=== PATIENT | male | born 1945 | race Caucasian/White ===

== ENCOUNTER → 2023-08-19 | Outpatient (CLI) | payer MEDICARE, OTHER, SELFPAY ==
--- NOTE | 2023-08-19 18:27 | US_ITS ---
STUDY: SCROTUM ULTRASOUND REASON FOR EXAM: Male, 78 years old. Left testicular swelling. TECHNIQUE: Ultrasound evaluation of the scrotum was performed with color Doppler and static marte-scale imaging. COMPARISON: None. FINDINGS: RIGHT TESTICLE INTRATESTICULAR: There is a normal size of the right testicle. The right testicle measures 4.4 cm x 3.5 cm x 2.4 cm. There is a homogenous echotexture. There is normal arterial and normal venous vascularity. There is no demonstrated right testicular mass or cyst. EXTRATESTICULAR: The epididymis is normal in size. The epididymis head measures 1.1 cm x 1.3 cm x 1.6 cm. There is normal vascularity of the epididymis. There is a well-defined cystic structure within the epididymis, without internal echoes, consistent with an epididymal cyst. This measures 6 mm x 7 mm x 5 mm. There is a small hydrocele. There is no demonstrated varicocele. There is no demonstrated extratesticular mass or cyst. LEFT TESTICLE INTRATESTICULAR: There is a normal size of the left testicle. The left testicle measures 4.4 cm x 3.3 cm x 2.6 cm. There is a homogenous echotexture. There is normal arterial and normal venous vascularity. There is no demonstrated left testicular mass or cyst. EXTRATESTICULAR: The epididymis is normal in size. The epididymis head measures 1.3 cm x 1 cm x 0.6 cm. There is normal vascularity of the epididymis. There is a well-defined cystic structure within the epididymis, without internal echoes, consistent with an epididymal cyst. This measures 6 mm x 4 mm x 6 mm. There is a large hydrocele. There is no demonstrated varicocele. There is no demonstrated extratesticular mass or cyst. US/Testicular with Arterial Flow IMPRESSION: Small bilateral epididymal cysts. Large left hydrocele. Small right hydrocele. Electronically Signed: Bethel Gutierrez MD at 12:59 EDT ,
== END | disposition home or self-care (01) ==
LOC: US 18:26
PROVIDERS: PCP Internal Medicine; Visit Provider Internal Medicine
DX: N50.3 Cyst of epididymis (principal); N43.3 Hydrocele, unspecified
CPT/HCPCS: 76870; 93976

== ENCOUNTER → 2023-09-25 | Outpatient (CLI) | payer MEDICARE, OTHER, SELFPAY ==
[2023-09-25 11:51] LABS: Absolute Lymphocyte Count 1.25 X10^3/uL (0.83-4.51); Absolute Neutrophil Count 2.6 X10^3/uL (2.0-7.7); Basophil# 0.05 X10^3/uL; Eosinophil# 0.44 X10^3/uL; Eosinophils% 8.4 % (0-5); Hematocrit 42.9 % (40-54); Hemoglobin 14.1 g/dL (13.0-16.5); Lymphocyte # 1.25 X10^3/ul (0.83-4.51); Lymphocyte % 23.9 % (19-41); Mean Corp Hgb Conc 32.9 g/dL (32-36); Mean Corpuscular Volume 91.3 fL (80-94); Mean Platelet Vol. 9.7 fl (6.2-12.0); Monocyte# 0.93 X10^3/uL; Monocyte% 17.8 % (0-10); NRBC Flagged by Analyzer 0 % (0-5); Neutrophil # 2.55 X10^3/uL (2.7-7.7); Neutrophil % 48.7 % (47-70); Platelet Count 307 K/mm3 (150-450); RBC Distribution Width CV 13.8 % (11.6-14.6); RBC Distribution Width SD 46.4 fl (35.1-43.9); White Blood Count 5.2 K/mm3 (4.4-11.0)
[2023-09-25 12:23] LABS: ALB/GLOB Ratio 0.9 RATIO (0.9-2.4); AST(SGOT) 26 U/L (15-37); Alanine Aminotransfer ALT/SGPT 26 U/L (16-61); Albumin, Serum 3.4 g/dL (3.2-5.0); Alkaline Phosphatase 57 U/L (45-117); Anion Gap 2 (5-15); BUN 16 mg/dL (7-18); Chloride 104 mmol/L (98-107); Cholesterol 152 mg/dL (200); Creatinine, Serum 1.14 mg/dL (0.70-1.30); EST Glomerular Filtration Rate 66 mL/min (>60); Est Glom Filt Rate - Afr Amer 80 mL/min (>60); Globulin 3.7 g/dL (2.2-4.2); Glucose 121 mg/dL (74-106); High Density Lipoprotein 51 mg/dL; Magnesium 2.1 mg/dL (1.6-2.6); PSA,Total - Annual Screen 2.42 ng/mL (0.00-4.00); Potassium 3.3 mmol/L (3.5-5.1); Protein, Total 7.1 g/dL (6.4-8.2); Sodium Level 138 mmol/L (136-145); Thyroid Stim Hormone (TSH) 1.24 uIU/mL (0.358-3.74); Triglycerides 95 mg/dL; Very Low Density Lipoprotein 19 mg/dL (5-40)
[2023-09-25 18:08] LABS: Vitamin D,25 Hydroxy 92.2 ng/mL
== END | disposition home or self-care (01) ==
LOC: LAB 11:04
PROVIDERS: PCP Internal Medicine; Referring Provider Internal Medicine; Visit Provider Internal Medicine
DX: E78.5 Hyperlipidemia, unspecified (principal); Z13.220 Encounter for screening for lipoid disorders; I10 Essential (primary) hypertension; K21.9 Gastro-esophageal reflux disease without esophagitis; J30.2 Other seasonal allergic rhinitis; Z12.5 Encounter for screening for malignant neoplasm of prostate; E55.9 Vitamin D deficiency, unspecified
CPT/HCPCS: 36415; 80053; 80061; 82306; 83735; 84153; 84443; 85025; G0103

== ENCOUNTER → 2024-09-27 | Outpatient (CLI) | payer MEDICARE, OTHER, SELFPAY ==
[2024-09-27 12:16] LABS: Absolute Lymphocyte Count 1.72 X10^3/uL (0.83-4.51); Absolute Neutrophil Count 4.5 X10^3/uL (2.0-7.7); Basophil# 0.09 X10^3/uL; Basophil% 1.2 % (0-1); Eosinophil# 0.41 X10^3/uL; Eosinophils% 5.4 % (0-5); Hematocrit 40.4 % (40-54); Hemoglobin 13.7 g/dL (13.0-16.5); Lymphocyte # 1.72 X10^3/ul (0.83-4.51); Lymphocyte % 22.6 % (19-41); Mean Corp Hgb Conc 33.9 g/dL (32-36); Mean Corpuscular Hgb 30.5 pg (27.0-32.0); Mean Platelet Vol. 9.4 fl (6.2-12.0); Monocyte# 0.84 X10^3/uL; NRBC Flagged by Analyzer 0 % (0-5); Neutrophil # 4.54 X10^3/uL (2.7-7.7); Neutrophil % 59.5 % (47-70); Platelet Count 328 K/mm3 (150-450); RBC Distribution Width CV 13.2 % (11.6-14.6); RBC Distribution Width SD 43.5 fl (35.1-43.9); Red Blood Count 4.49 M/mm3 (4.6-6.2); White Blood Count 7.6 K/mm3 (4.4-11.0)
[2024-09-27 13:10] LABS: Cholesterol 182 mg/dL (<=200); High Density Lipoprotein 52 mg/dL; Low Density Lipoprotein Calc. 102 mg/dL; Triglycerides 143 mg/dL; Very Low Density Lipoprotein 29 mg/dL (5-40); cholesterol:hdl ratio screen 3.52
[2024-09-27 13:26] LABS: ALB/GLOB Ratio 1.2 RATIO (0.9-2.4); AST(SGOT) 38 U/L (<=37); Alanine Aminotransfer ALT/SGPT 25 U/L (<=46); Alkaline Phosphatase 64 U/L (40-129); Anion Gap 9 (5-15); BUN 18 mg/dL (4-19); BUN/Creat Ratio 17.3 RATIO (10-20); Calcium,Total 9.7 mg/dL (7.6-11.0); Carbon Dioxide 26.7 mmol/L (21.0-32.0); Chloride 102 mmol/L (98-108); Creatinine, Serum 1.06 mg/dL (0.70-1.20); EST Glomerular Filtration Rate 72 (>60); Globulin 3.3 g/dL (2.2-4.2); Glucose 102 mg/dL (70-99); PSA,Total - Annual Screen 3.22 ng/mL (0.02-4.00); Potassium 3.7 mmol/L (3.3-5.1); Protein, Total 7.3 g/dL (5.9-8.4); Sodium Level 138 mmol/L (133-145); Total Bilirubin 0.45 mg/dL (0.00-1.30); Vitamin B12 850 pg/mL (180-914); Vitamin D,25 Hydroxy 82.8 ng/mL (30-100)
== END | disposition home or self-care (01) ==
PROVIDERS: PCP Internal Medicine; Referring Provider Internal Medicine; Visit Provider Internal Medicine
DX: I10 Essential (primary) hypertension (principal); K21.9 Gastro-esophageal reflux disease without esophagitis; J30.2 Other seasonal allergic rhinitis; E55.9 Vitamin D deficiency, unspecified; E53.8 Deficiency of other specified B group vitamins; Z12.5 Encounter for screening for malignant neoplasm of prostate
CPT/HCPCS: 36415; 80053; 80061; 82306; 82607; 83735; 84153; 84443; 85025; G0103

== ENCOUNTER → 2025-01-05 | Outpatient (CLI) | payer MEDICARE, OTHER, SELFPAY ==
--- NOTE | 2025-01-05 14:20 | VDLE_ITS ---
Reason For Study Reason For Study: RLE Swelling RIGHT LEFT GSV is normal. CFV is compressible, spontaneous, phasic, competent, CFV is compressible, spontaneous, phasic, competent and demonstrates normal augmentation. and demonstrates normal augmentation. FV is compressible, spontaneous, phasic, competent and demonstrates normal augmentation. POP V is compressible, spontaneous, phasic, competent and demonstrates normal augmentation. T/P Trunk is compressible. PTV is compressible. RT PerV is compressible. Procedure This is a venous duplex using B-mode, color flow and spectral Doppler. Exam performed in department. The exam was diagnostic. A preliminary report was called and/or faxed to Dr. Roth office. VL/Venous Duplex US, Unilateral Interpretation Summary Deep veins of the right lower extremity are patent and compressible segmentally . There is no evidence of right lower extremity deep vein thrombosis. Valvular competence appears intact within the p roximal deep venous system on the right . The right great saphenous vein appears patent and compressible segmentally. The left common femoral vein is patent and compressible . Ordering Physician: Yasmeen Roth Referring Physician: Yasmeen Roth Performed By: Ken Winters RVT
--- OUTSIDE RECORDS SUMMARY | 2025-01-05 22:52 | XMS RPT_ITS | CCD ---
Author Organization [facility] Care Team Providers Care Director Selection And Administration Name Role Phone ROXANA HIDALGO MD Consulting Unavailable MARIA G HIDALGO DR Admitting Unavailable MARIA G HIDALGO DR Attending Unavailable MARIA G HIDALGO DR Primary Care Unavailable PROVIDER, UNKNOWN Consulting Unavailable PROVIDER, UNKNOWN Consulting Unavailable PROVIDER, UNKNOWN Consulting Unavailable ROXANA HIDALGO MD Consulting Unavailable ROXANA HIDALGO MD Attending Unavailable ROXANA HIDALGO MD Admitting Unavailable ROXANA HIDALGO MD Primary Care Unavailable PROVIDER, UNKNOWN Consulting Unavailable PROVIDER, UNKNOWN Consulting Unavailable PROVIDER, UNKNOWN Consulting Unavailable MARIA G HIDALGO DR Primary Care Unavailable ROXANA HIDALGO MD Consulting Unavailable MARIA G HIDALGO DR Admitting Unavailable MARIA G HIDALGO DR Attending Unavailable PROVIDER, UNKNOWN Consulting Unavailable PROVIDER, UNKNOWN Consulting Unavailable PROVIDER, UNKNOWN Consulting Unavailable UMM, JOCELYNN T Attending Unavailable UMM, JOCELYNN T Admitting Unavailable ROXANA HIDALGO MD Consulting Unavailable UMM, JOCELYNN T Primary Care Unavailable PROVIDER, UNKNOWN Consulting Unavailable PROVIDER, UNKNOWN Consulting Unavailable PROVIDER, UNKNOWN Consulting Unavailable ROXANA HIDALGO MD Attending Unavailable ROXANA HIDALGO MD Admitting Unavailable ROXANA HIDALGO MD Primary Care Unavailable RAMON, FELTON PAC Primary Care Unavailable RAMON, FELTON PAC Admitting Unavailable RAMON, FELTON PAC Attending Unavailable ROXANA HIDALGO MD Consulting Unavailable PROVIDER, UNKNOWN Consulting Unavailable PROVIDER, UNKNOWN Consulting Unavailable PROVIDER, UNKNOWN Consulting Unavailable RAMON, FELTON PAC Admitting Unavailable ROXANA HIDALGO MD Consulting Unavailable RAMON, FELTON PAC Primary Care Unavailable RAMON, FELTON PAC Attending Unavailable PROVIDER, UNKNOWN Consulting Unavailable PROVIDER, UNKNOWN Consulting Unavailable PROVIDER, UNKNOWN Consulting Unavailable ROXANA HIDALGO MD Consulting Unavailable MARIA G HIDALGO DR Attending Unavailable MARIA G HIDALGO DR Primary Care Unavailable MARIA G HIDALGO DR Admitting Unavailable PROVIDER, UNKNOWN Consulting Unavailable PROVIDER, UNKNOWN Consulting Unavailable PROVIDER, UNKNOWN Consulting Unavailable ROXANA HIDALGO MD Attending Unavailable ROXANA HIDALGO MD Admitting Unavailable ROXANA HIDALGO MD Primary Care Unavailable ROXANA HIDALGO MD Consulting Unavailable PROVIDER, UNKNOWN Consulting Unavailable PROVIDER, UNKNOWN Consulting Unavailable PROVIDER, UNKNOWN Consulting Unavailable MARIA G HIDALGO DR Primary Care Unavailable MARIA G HIDALGO DR Attending Unavailable MARIA G HIDALGO DR Admitting Unavailable Unavailable Primary Care Provider UnavailBenita Young MD Attending Unavailable Dr. Roxana Hidalgo Primary Care Provider [phone] Dr. Yasmeen Roth Attending Provider [phone] Dr. Yasmeen Roth MD Primary Care Provider Dr. Yasmeen Roth MD Attending Provider Yasmeen Roth Referring Unavailable Yasmeen Roth Attending Unavailable Yasmeen Roth Primary Care Unavailable Yasmeen Roth Attending Unavailable Yasmeen Roth Primary Care Unavailable Ira ERVIN, Dr. Arana Referring Provider Allergies Allergy Classification Reported Allergen(s) Allergy Type Date of Onset Reaction(s) Facility (1 source) Aspirin Drug Allergy [facility] Repository (3 sources) Aspirin Drug Allergy 08-14-2023 Bleeding [facility] Comment on above: full strength, react ion not listed (1 source) Aspirin Drug Allergy 09-27-2024 [facility]ository Medications Current Medications Medication Drug Class(es) Dates Sig (Normalized) Sig (Original) cetirizine hydrochloride 10 mg oral tablet (3 sources) Histamine-1 Receptor Antagonist Start: 09-11-2022 take 1 tablet by mouth once daily Cetirizine (All Day Allergy (Cetirizine)) 10 mg tablet Active 10 mg PO DAILY September 11, 2022 12:00am cholecalciferol 0.05 mg oral capsule (3 sources) Vitamin D Start: 09-11-2022 take 1 capsule by mouth once daily Cholecalciferol (Vitamin D3) 50 mcg (2,000 unit) capsule Active 50 ug PO DAILY September 11, 2022 12:00am cyclobenzaprine hydrochloride 10 mg oral tablet (1 source) Muscle Relaxant Start: 01-05-2025 take 1 tablet by mouth every eight hours as needed for pain Cyclobenzaprine 10 mg tablet Active 10 mg PO EVERY 8 HOURS as needed for pain January 05, 2025 12:00am Pv-Isq-Bjcwu-Calcium Carb-K1 (Women's 50 Plus Multivitamin) 400 mcg-500 mg calcium-20 mcg tablet (3 sources) Start: 09-11-2022 Ev-Rwh-Hncwz-Calcium Carb-K1 (Women's 50 Plus Multivitamin) 400 mcg-500 mg calcium-20 mcg tablet Active {tbl} PO September 11, 2022 12:00am Start: 09-11-2022 take 1 tablet by mouth once Mv -Vlq-Qxlae-Ipypnev Carb-K1 (Women's 50 Plus Multivitamin) 400 mcg-500 mg calcium-20 mcg tablet Active TABLET PO September 11, 2022 12:00am traMADol hydrochloride 50 mg oral tablet (1 source) Opioid Agonist Start: 01-05-2025 take 1 tablet by mouth every six hours as needed for pain Tramadol 50 mg tablet Active 50 mg PO EVERY 6 HOURS as needed for pain January 05, 2025 12:00am WHEAT DEXTRIN (3 sources) Start: 09-11-2022 take 4 [oz_av] by mouth twice daily Wheat Dextrin (Fiber Supplement(Wheatdext rin)) 3 gram/3.8 gram powder Active 1.5 g PO TWICE A DAY September 11, 2022 12:00am mix into at least 4 oz water or juice before administering Start: 09-11-2022 take 4 [oz_av] by mo [facility] twice daily Wheat Dextrin (Fiber Supplement(Wheatdextrin)) 3 gram/3.8 gram powder Active 1.5 GM PO TWICE A DAY September 11, 2022 12:00am mix into at least 4 oz water or juice before administering Completed/Discontinued Medications Medication Drug Class(es) Dates Sig (Normalized) Sig (Original) azithromycin 250 mg oral tablet (2 sources) Macrolide Antimicrobial Start: 09-25-19 End: 09-28-19 Azithromycin (Zithromax) 250 mg tablet Discontinued 0 PO .COMPLEX 6 0 September 25, 2023 12:00am September 27, 2024 10:17am For 250 mg dose pack: take 500 mg today (day 1), then 250 mg for 4 days (days 2-5) PO celecoxib 200 mg oral capsule (3 sources) Nonsteroidal Anti-inflammatory Drug Start: 08-14-19 End: 08-19-19 take 1 capsule by mouth once daily Celecoxib (Celebrex) 200 mg capsule Discontinued 200 mg PO DAILY 5 5 0 August 14, 2023 12:00am August 18, 2023 12:00am August 19, 2023 12:05am Take with a meal. doxycycline hyclate 100 mg oral tablet (3 sources) Tetracycline-clas s Drug Start: 08-14-19 End: 09-25-19 take 1 tablet by mouth twice daily Doxycycline Hyclate 100 mg tablet Discontinued 100 mg PO TWICE A DAY 10 August 14, 2023 12:00am September 25, 2023 10:00am Take on empty stomach with a couple of crackers, and small amount of water. Do not take with dairy. hydroCHLOROthiazide 50 mg oral tablet (8 sources) Thiazide Diuretic Start: 09-12-19 End: 07-21-19 take 1 tablet by mouth once daily Hydrochlorothiazide 50 mg tablet Discontinued 50 mg PO DAILY July 15, 2023 5:54pm July 20, 2024 11:40am losartan potassium 50 mg oral tablet (8 sources) Angiotensin 2 Receptor Paul Start: 09-12-19 End: 07-21-19 take 1 tablet by mouth once daily Losartan 50 mg tablet Discontinued 50 mg PO DAILY July 15, 2023 5:54pm July 20, 2024 11:40am omeprazole 20 mg delayed release oral capsule (8 sources) Proton Pump Inhibitor Start: 09-12-19 End: 07-21-19 25 take 1 capsule by mouth once daily Omeprazole 20 mg capsule,delayed release(DR/EC) Discontinued 20 mg PO DAILY July 15, 2023 5:54pm July 20, 2024 11:40am Problems Active Problems Problem Classification Problem Date Documented Date Episodic/Chronic Esophageal disorders (5 sources) Gastroesophageal reflux disease; Translations: [Gastro-esophageal reflux disease without esophagitis] Onset: 09-27-2024 09-19-2022 Chronic Essential hypertension (7 sources) Essential (primary) hypertension; Translations: [Hypertensive disorder] Onset: 06-14-2022 Chronic Nutritional deficiencies (1 source) Vitamin D deficiency, unspecified; Translations: [Vitamin D deficiency, unspecified] Onset: 09-27-2024 Chronic Osteoarthritis (3 sources) Unilateral primary osteoarthritis, right knee; Translations: [Unilateral primary osteoarthritis, right knee] Onset: 01-10-2021 Chronic Other connective tissue disease (1 source) Swollen calf; Translations: [Other specified soft tissue disorders] 01-05-2025 Episodic Other connective tissue disease (1 source) Swelling of right lower limb; Translations: [Other specified soft tissue disorders] 01-05-2025 Episodic Other connective tissue disease (1 source) Bicipital tendinitis, right shoulder; Translations: [Biceps tendinitis of right upper extremity] 01-05-2025 Episodic Other male genital disorders (3 sources) Swelling of left half of scrotum; Translations: [Other specified disorders of the male genital organs] 08-14-2023 Episodic Other male genital disorders (1 source) Other specified disorders of the male genital organs; Translations: [Edema of male genital organs] 08-14-2023 Episodic Other male genital disorders (2 sources) Adult hydrocele; Translations: [Hydrocele, unspecified] 09-25-2023 Episodic Other non-traumatic joint disorders (1 source) Pain in right shoulder; Translations: [Right shoulder pain] 01-05-2025 Episodic Other screening for suspected conditions (not mental disorders or infectious disease) (1 source) Encounter for screening for malignant neoplasm of prostate; Translations: [Encounter for screening for malignant neoplasm of prostate] Onset: 09-27-2024 Episodic Other upper respiratory disease (4 sources) Seasonal allergy; Translations: [Other seasonal allergic rhinitis] 09-19-2022 Chronic Other upper respiratory disease (1 source) Other seasonal allergic rhinitis; Translations: [Other seasonal allergic rhinitis] Onset: 09-27-2024 Chronic Other upper respiratory infections (2 sources) Acute upper respiratory infection; Translations: [Acute upper respiratory infection, unspecified] 09-25-2023 Episodic Unclassified (1 source) Right shoulder pain Unclassified (1 source) Biceps tendinitis of right upper extremity Unclassified (2 sources) M25.511 - Pain in right shoulder,M75.21 - Bicipital tendinitis, right shoulder Past or Other Problems Problem Classification Problem Date Documented Da te Episodic/Chronic Joint disorders and dislocations; trauma-related (2 sources) Complex tear of lateral meniscus, current injury, right knee, subsequent encounter; Translations: [Unspecified tear of unspecified meniscus, current injury, right knee, initial encounter] Onset: 06-30-2020 Episodic Other non-traumatic joint disorders (3 sources) Pain in right knee; Translations: [Pain in right knee] Onset: 06-30-2020 Episodic Results Test Name Value Interpretation Reference Range Facility Absolute lymphocyte countOrd ered By: Ysameen Roth on 09-27-2024 Lymphocytes Auto (Unsp spec) [#/Vol] 1.72 10*3/uL 0.83-4.51 [facility] Absolute neutrophil countOrd ered By: Yasmeen Roth on 09-27-2024 Neutrophils (Bld) [#/Vol] 4.5 10*3/uL 2.0-7.7 [facility] Anion gap in Serum or Plasma Ordered By: Yasmeen Roth on 09-27-2024 Anion gap [Moles/Vol] 9 mmol/L 5- [facility] Automated lymphocyte count a s percentage of total leukocytesOrdered By: Yasmeen Roth on 09-27-2024 Lymphocytes/100 WBC Auto (Unsp spec) 22.6 % - [facility] BUN/creatinine ratioOrdered By: Yasmeen Roth on 09-27-2024 Urea nitrogen/Creatinine [Mass ratio] 17.3 mg/mg - [facility] Basophil percentageOrdered B y: Yasmeen Roth on 09-27-2024 Basophils/100 WBC (Bld) 1.2 % High 0-1 [facility] Bilirubin, totalOrdered By: Yasmeen Roth on 09-27-2024 Bilirubin [Mass/Vol] 0.45 mg/dL 0.00-1.30 [facility] CBC W/Diff, Automatedon 09-09 Absolute Lymph 1.72 X10 3/uL Normal 0.83-4.51 [facility] Comment on above: Performed By: #### L 506.1001, L100.0100, L500.4100, L501.5200, L500.4050, L501.9520, L501.9910, L503.0106 #### [facility] [address] [place], [address] Absolute Neut 4.5 X10 3/uL Normal 2.0-7.7 [facility] Comment on above: Performed By: #### L 506.1001, L100.0100, L500.4100, L501.5200, L500.4050, L501.9520, L501.9910, L503.0106 #### [facility] [address] [place], [address] Basophils/100 WBC (Bld) 1.2 % High 0-1 [facility] Comment on above: Performed By: #### L 506.1001, L100.0100, L500.4100, L501.5200, L500.4050, L501.9520, L501.9910, L503.0106 #### [facility] [address] [place], [address] Eosinophils/100 WBC (Bld) 5.4 % High 0-5 [facility] Comment on above: Performed By: #### L 506.1001, L100.0100, L500.4100, L501.5200, L500.4050, L501.9520, L501.9910, L503.0106 #### [facility] [address] [place], [address] Erythrocyte distribution width (RBC) [Ratio] 13.2 % Normal 11.6-14.6 [facility] Comment on above: Performed By: #### L 506.1001, L100.0100, L500.4100, L501.5200, L500.4050, L501.9520, L501.9910, L503.0106 #### [facility] [address] [place], [address] Hematocrit (Bld) [Volume fraction] 40.4 % Normal 40-54 [facility] Comment on above: Performed By: #### L 506.1001, L100.0100, L500.4100, L501.5200, L500.4050, L501.9520, L501.9910, L503.0106 #### [facility] [address] [place], [address] Hemoglobin (Bld) [Mass/Vol] 13.7 g/dL Normal 13.0-16.5 [facility] Comment on above: Performed By: #### L 506.1001, L100.0100, L500.4100, L501.5200, L500.4050, L501.9520, L501.9910, L503.0106 #### [facility] [address] [place], [address] IG% 0.300 Normal 0.0-0.9 [facility] Comment on above: Result Comment: IG% - Immature Granulocytes (promyelocytes, myelocytes and metamyelocytes) > 1% indicates that a LEFT SHIFT is Present. Performed By: #### L 506.1001, L100.0100, L500.4100, L501.5200, L500.4050, L501.9520, L501.9910, L503.0106 #### [facility] [address] [place], [address] Lymphocytes/100 WBC (Bld) 22.6 % Normal 19-41 [facility] Comment on above: Performed By: #### L 506.1001, L100.0100, L500.4100, L501.5200, L500.4050, L501.9520, L501.9910, L503.0106 #### [facility] [address] [place], [address] MCH (RBC) [Entitic mass] 30.5 pg Normal 27.0-32.0 [facility] Comment on above: Performed By: #### L 506.1001, L100.0100, L500.4100, L501.5200, L500.4050, L501.9520, L501.9910, L503.0106 #### [facility] [address] [place], [address] MCHC (RBC) [Mass/Vol] 33.9 g/dL Normal 32-36 [facility] Comment on above: Performed By: #### L 506.1001, L100.0100, L500.4100, L501.5200, L500.4050, L501.9520, L501.9910, L503.0106 #### [facility] [address] [place], [address] MCV (RBC) [Entitic vol] 90.0 fL Normal 80-94 [facility] Comment on above: Performed By: #### L 506.1001, L100.0100, L500.4100, L501.5200, L500.4050, L501.9520, L501.9910, L503.0106 #### [facility] [address] [place], [address] Monocytes/100 WBC (Bld) 11.0 % High 0-10 [facility] Comment on above: Performed By: #### L 506.1001, L100.0100, L500.4100, L501.5200, L500.4050, L501.9520, L501.9910, L503.0106 #### [facility] [address] [place], [address] Neutrophils/100 WBC (Bld) 59.5 % Normal 47-70 [facility] Comment on above: Performed By: #### L 506.1001, L100.0100, L500.4100, L501.5200, L500.4050, L501.9520, L501.9910, L503.0106 #### [facility] [address] [place], [address] Nucleated RBC (Bld) [#/Vol] 0 10*3/uL Normal 0-5 [facility] Comment on above: Performed By: #### L 506.1001, L100.0100, L500.4100, L501.5200, L500.4050, L501.9520, L501.9910, L503.0106 #### [facility] [address] [place], [address] Platelet mean volume (Bld) [Entitic vol] 9.4 fL Normal 6.2-12.0 [facility] Comment on above: Performed By: #### L 506.1001, L100.0100, L500.4100, L501.5200, L500.4050, L501.9520, L501.9910, L503.0106 #### [facility] [address] [place], [address] Platelets (Bld) [#/Vol] 328 10*3/uL Normal 150-450 [facility] Comment on above: Performed By: #### L 506.1001, L100.0100, L500.4100, L501.5200, L500.4050, L501.9520, L501.9910, L503.0106 #### [facility] [address] [place], [address] RBC (Bld) [#/Vol] 4.49 10*6/uL Low 4.6-6.2 [facility] Comment on above: Performed By: #### L 506.1001, L100.0100, L500.4100, L501.5200, L500.4050, L501.9520, L501.9910, L503.0106 #### [facility] [address] [place], [address] RDW SD 43.5 fl Normal 35.1-43.9 [facility] Comment on above: Performed By: #### L 506.1001, L100.0100, L500.4100, L501.5200, L500.4050, L501.9520, L501.9910, L503.0106 #### [facility] [address] [place], [address] WBC (Bld) [#/Vol] 7.6 10*3/uL Normal 4.4-11.0 [facility] Comment on above: Performed By: #### L 506.1001, L100.0100, L500.4100, L501.5200, L500.4050, L501.9520, L501.9910, L503.0106 #### [facility] [address] [place], [place], [id number] Calculated very low density lipoprotein (VLDL) cholesterol measurementOrdered By: Yasmeen Roth on 09-27-2024 Calculated very low density lipoprotein (VLDL) cholesterol measurement 29 mg/dL 5-40 [facility] Carbon dioxide, total [Moles /volume] in Central venous bloodOrdered By: Yasmeen Roth on 09-27-2024 CO2 [Moles/Vol] 26.7 mmol/L 21.0-32.0 [facility] Chloride assayOrdered By: Iveth Roth on 09-27-2024 Chloride [Moles/Vol] 102 mmol/L 98-108 [facility] Comprehensive Metabolic Prof ilon 09-27-2024 Albumin [Mass/Vol] 4.0 g/dL Normal 3.4-4.8 [facility] Comment on above: Performed By: #### L 506.1001, L100.0100, L500.4100, L501.5200, L500.4050, L501.9520, L501.9910, L503.0106 #### [facility] [address] [place], [place], [id number] Albumin/Globulin [Mass ratio] 1.2 {ratio} Normal 0.9-2.4 [facility] Comment on above: Performed By: #### L 506.1001, L100.0100, L500.4100, L501.5200, L500.4050, L501.9520, L501.9910, L503.0106 #### [facility] [address] [place], [address] ALK PHOS 64 U/L Normal 40-129 [facility] Comment on above: Performed By: #### L 506.1001, L100.0100, L500.4100, L501.5200, L500.4050, L501.9520, L501.9910, L503.0106 #### [facility] [address] [place], [address] ALT [Catalytic activity/Vol] 25 U/L Normal <=46 [facility] Comment on above: Performed By: #### L 506.1001, L100.0100, L500.4100, L501.5200, L500.4050, L501.9520, L501.9910, L503.0106 #### [facility] [address] [place], [address] AST [Catalytic activity/Vol] 38 U/L Normal <=37 [facility] Comment on above: Result Comment: Hemo lysis present, Results??could be affected. ?? Performed By: #### L 506.1001, L100.0100, L500.4100, L501.5200, L500.4050, L501.9520, L501.9910, L503.0106 #### [facility] [address] [place], [address] Bilirubin [Mass/Vol] 0.45 mg/dL Normal 0.00-1.30 [facility] Comment on above: Performed By: #### L 506.1001, L100.0100, L500.4100, L501.5200, L500.4050, L501.9520, L501.9910, L503.0106 #### [facility] [address] [place], [address] BUN/CRE 17.3 RATIO Normal 10-20 [facility] Comment on above: Performed By: #### L 506.1001, L100.0100, L500.4100, L501.5200, L500.4050, L501.9520, L501.9910, L503.0106 #### [facility] [address] [place], [address] Calcium [Mass/Vol] 9.7 mg/dL Normal 7.6-11.0 [facility] Comment on above: Performed By: #### L 506.1001, L100.0100, L500.4100, L501.5200, L500.4050, L501.9520, L501.9910, L503.0106 #### [facility] [address] [place], [address] Chloride [Moles/Vol] 102 mmol/L Normal 98-108 [facility] Comment on above: Performed By: #### L 506.1001, L100.0100, L500.4100, L501.5200, L500.4050, L501.9520, L501.9910, L503.0106 #### [facility] [address] [place], [address] CO2 [Moles/Vol] 26.7 mmol/L Normal 21.0-32.0 [facility] Comment on above: Performed By: #### L 506.1001, L100.0100, L500.4100, L501.5200, L500.4050, L501.9520, L501.9910, L503.0106 #### [facility] [address] [place], [address] Creatinine [Mass/Vol] 1.06 mg/dL Normal 0.70-1.20 [facility] Comment on above: Performed By: #### L 506.1001, L100.0100, L500.4100, L501.5200, L500.4050, L501.9520, L501.9910, L503.0106 #### [facility] [address] [place], [address] GAP 9 Normal 5-15 [facility] Comment on above: Performed By: #### L 506.1001, L100.0100, L500.4100, L501.5200, L500.4050, L501.9520, L501.9910, L503.0106 #### [facility] [address] [place], [address] GFR/1.73 sq M.predicted among non-blacks MDRD (S/P/Bld) [Vol rate/Area] 72 mL/min/{1.73_m2} Normal >60 [facility] Comment on above: Result Comment: mL/m in/1.73m2 CKD-EPI Creatinine Equation (2020) Performed By: #### L 506.1001, L100.0100, L500.4100, L501.5200, L500.4050, L501.9520, L501.9910, L503.0106 #### [facility] [address] [place], [address] Globulin (S) [Mass/Vol] 3.3 g/dL Normal 2.2-4.2 [facility] Comment on above: Performed By: #### L 506.1001, L100.0100, L500.4100, L501.5200, L500.4050, L501.9520, L501.9910, L503.0106 #### [facility] [address] [place], [address] Glucose [Mass/Vol] 102 mg/dL High 70-99 [facility] Comment on above: Performed By: #### L 506.1001, L100.0100, L500.4100, L501.5200, L500.4050, L501.9520, L501.9910, L503.0106 #### [facility] [address] [place], [address] Potassium [Moles/Vol] 3.7 mmol/L Normal 3.3-5.1 [facility] Comment on above: Result Comment: Hemo lysis present, Results??could be affected. ?? Performed By: #### L 506.1001, L100.0100, L500.4100, L501.5200, L500.4050, L501.9520, L501.9910, L503.0106 #### [facility] [address] [place], [address] Sodium [Moles/Vol] 138 mmol/L Normal 133-145 [facility] Comment on above: Performed By: #### L 506.1001, L100.0100, L500.4100, L501.5200, L500.4050, L501.9520, L501.9910, L503.0106 #### [facility] [address] [place], [address] T PROT 7.3 g/dL Normal 5.9-8.4 [facility] Comment on above: Performed By: #### L 506.1001, L100.0100, L500.4100, L501.5200, L500.4050, L501.9520, L501.9910, L503.0106 #### [facility] [address] [place], [address] Urea nitrogen [Mass/Vol] 18 mg/dL Normal 4-19 [facility] Comment on above: Performed By: #### L 506.1001, L100.0100, L500.4100, L501.5200, L500.4050, L501.9520, L501.9910, L503.0106 #### [facility] [address] [place], [address] Eosinophil percentageOrdered By: Yasmeen Roth on 09-27-2024 Eosinophils/100 WBC (Bld) 5.4 % High 0-5 [facility] Erythrocyte distribution wid th ratioOrdered By: Yasmeen Roth on 09-27-2024 Erythrocyte distribution width (RBC) [Ratio] 13.2 % 11.6-14.6 [facility] Erythrocyte distribution wid th standard deviationOrdered By: Yasmeen Roth on 09-27-2024 Erythrocyte distribution width (RBC) [Ratio] 43.5 fl 35.1-43.9 [facility] Glomerular filtration rate ( GFR) estimation/1.73 sq m using serum, plasma, or whole bOrdered By: Yasmeen Roth on 09-27-2024 GFR/1.73 sq M.predicted among non-blacks MDRD (S/P/Bld) [Vol rate/Area] 72 mL/min/{1.73_m2} >60 [facility] Comment on above: mL/min/1.73m2 CKD-EP I Creatinine Equation (2020) Hematocrit Auto (Bld) [Volum e fraction]Ordered By: Yasmeen Roth on 09-27-2024 Hematocrit (Bld) [Volume fraction] 40.4 % 40-54 [facility] Hemoglobin measurementOrdere d By: Yasmeen Roth on 09-27-2024 Hemoglobin (Bld) [Mass/Vol] 13.7 g/dL 13.0-16.5 [facility] Immature granulocytes/100 WB C Auto (Bld)Ordered By: Yasmeen Roth on 09-27-2024 Immature granulocytes/100 WBC (Bld) 0.300 % 0.0-0.9 [facility] Comment on above: IG% - Immature Granu locytes (promyelocytes, myelocytes and metamyelocytes) > 1% indicates that a LEFT SHIFT is Present. LDL calc ser/plasOrdered By: Yasmeen Roth on 09-27-2024 Cholesterol in LDL [Mass/Vol] 102 mg/dL [facility] Comment on above: Mlvkfukiis=983-953 m g/dL & Higher Toxq=617 mg/dL or greater Laboratory - Chemistry and C hemistry - challengeOrdered By: Yasmeen Roth on 09-27-2024 AST [Catalytic activity/Vol] 38 U/L <38 [facility] Comment on above: Hemolysis present, R esults could be affected. Lipid Profileon 09-27-2024 CHOL:HDL 3.52 Normal [facility] Comment on above: Performed By: #### L 506.1001, L100.0100, L500.4100, L501.5200, L500.4050, L501.9520, L501.9910, L503.0106 #### [facility] [address] [place], [address] Cholesterol [Mass/Vol] 182 mg/dL Normal <=200 [facility] Comment on above: Result Comment: Chol esterol level, Desirable <200 mg/dL Borderline high cholesterol 200-239 mg/dL High cholesterol >=240 mg/dL Recommendations of the NCEP Adult Treatment Panel for the following risk-cutoff thresholds for the [place] population. Performed By: #### L 506.1001, L100.0100, L500.4100, L501.5200, L500.4050, L501.9520, L501.9910, L503.0106 #### [facility] [address] [place], [address] Cholesterol in HDL [Mass/Vol] 52 mg/dL Normal [facility] Comment on above: Result Comment: Meredith onal Cholesterol Education Program (NCEP) guidelines: <40 mg/dL: Low HDL-cholesterol (major risk factor for CHD) >= 60 mg/dL: High HDL-cholesterol (negative risk factor for CHD) HDL-cholesterol is affected by a number of factors, e.g. smoking, exercise, hormones, sex and age. Performed By: #### L 506.1001, L100.0100, L500.4100, L501.5200, L500.4050, L501.9520, L501.9910, L503.0106 #### [facility] [address] [place], [address] Cholesterol in LDL [Mass/Vol] 102 mg/dL Normal [facility] Comment on above: Result Comment: Bord xeocic=258-699 mg/dL Higher Vncf=727 mg/dL or greater Performed By: #### L 506.1001, L100.0100, L500.4100, L501.5200, L500.4050, L501.9520, L501.9910, L503.0106 #### [facility] [address] [place], [address] Cholesterol in VLDL [Mass/Vol] 29 mg/dL Normal 5-40 [facility] Comment on above: Performed By: #### L 506.1001, L100.0100, L500.4100, L501.5200, L500.4050, L501.9520, L501.9910, L503.0106 #### [facility] [address], [address] Triglyceride [Mass/Vol] 143 mg/dL Normal [facility] Comment on above: Result Comment: The drugs N-Acetylcysteine and Metamizole may falsely depress this assay. Normal range: <150 mg/dL Borderline High: 150-199 mg/dL High: 200-499 mg/dL Very High: >500 mg/dL Performed By: #### L 506.1001, L100.0100, L500.4100, L501.5200, L500.4050, L501.9520, L501.9910, L503.0106 #### [facility] [address] [place], [address] MCV (mean corpuscular volume ) determinationOrdered By: Yasmeen Roth on 09-27-2024 MCV (RBC) [Entitic vol] 90.0 fL 80-94 [facility] MR/BMS.IMBon 09-27-2024 /BMS.B [facility] [address] [place] [address] OFFICE VISIT Date of Service: 09/27/24 MR#: [id number] Acct: [id number] Name: ALEXI LUEVANO Rep #: [id number] : 1945 Provider: Dr. 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 Accompanied by: Self Is patient in pain?: Yes (right upper back ) Pain scale (1-10): 1 Allergies aspirin Allergy (Intermediate, Verified 09/27/24 10:16) Bleeding Medications ???Medication ???Instructions ???Recorded ???Confirmed ???Type cetirizine 10 mg tablet (All Day 10 mg PO DAILY 09/11/22 09/27/24 H istory Allergy (cetirizine)) cholecalciferol (vitamin D3) 50 50 mcg PO DAILY 09/11/22 09/27/24 History mcg (2,000 unit) capsule fprpulyi-kol-atzks ac 400 tab PO 09/11/22 09/27/24 History mcg-calcium carb 500 mg-vit K1 20 mcg tablet (Women's 50 Plus Multivitamin) wheat dextrin 3 gram/3.8 gram oral 1.5 g PO BID 09/11/22 09/27/24 H istory powder (Fiber Supplement(wheat dextrin)) hydrochlorothiazide 50 mg tablet 50 mg PO DAILY #90 tabs 07/20/24 0 09/27/24 Rx losartan 50 mg tablet 50 mg PO DAILY #90 tabs 07/20/24 0 09/27/24 Rx omeprazole 20 mg capsule,delayed 20 mg PO DAILY #90 caps 07/20/24 0 09/27/24 Rx release Have you fallen in the past year?: Yes (08/2024, tripped over mower) PFSH Medical History Heart valve problem Vision problems Bleeding ulcer GERD (gastroesophageal reflux disease) Pneumonia Kidney stones HTN (hypertension) GI problem Seasonal allergies Surgical History PFO (patent foramen ovale) Family History Other Hypertension Social History adopted: No household members: none housing: house number of children: 1 current occupational status: retired current occupational exposures/hazards: No pets and animals: No leisure activities: exercise, reading, volunteer work and other history of recent travel: No sexually active: No Smoking Status: Never smoker alcohol intake: never substance use type: does not use well-balanced diet: about half the time caffeine: Yes eating out: 1-3 times/week during the past year weight has: remained stable what type of physical activity do you participate in: walking isaias/worship: Gnosticist seatbelt use: always do you feel safe at home: Yes HPI HPI Chief Complaint: Annual/Physical Details: ALEXI LUEVANO, is a 79 M who presents to the office today for annual follow-up. This is a pleasant 79-year-old gentleman who has a history of hypertension that is quite stable on his medical regimen including HCTZ 50 mg daily and losartan 50 mg daily. He had previously been on this regimen and I did not change it since I have seen him now for the last several years. He is on omeprazole 20 mg daily as well, multivitamin, Zyrtec for seasonal allergies. Generally speaking is feeling well. He is not having new specific concerns or issues. He did state that a couple of weeks ago, he inadvertently tripped and fell backwards and landed on his lawnmower engine. This was on the right lower rib cage area. He states it was sore but not severely painful. With turning, twisting it was uncomfortable. He did not have overt shortness of breath or any other symptoms associated with this. Now just a little sore and tender to touch but doing okay. He did not necessarily seek medical attention at that time. He did have questions about prostate cancer that we addressed. He had a friend unfortunately is now dealing with prostate cancer. He wanted to make sure that we could do the test for prostate cancer i.e. PSA. He is up-to-date on colonoscopy. Review of systems per chart. No chest pain, chest tightness, shortness of breath wheeze cough or congestion of significance. Did have some mild URI symptoms recently which are overall pretty stable. Appetite is good. Bowel movements are regular. Denies any dysuria, urgency or frequency. Usually up once a night, sometimes none. Depends on volume of intake. Good volume when he does get up. Follows annually with dermatology, Dr. Cotton. Did not have any lesions biopsied were removed recently at his last visit but di (more content not included)... Normal [facility] Magnesiumon 09-27-2024 Magnesium [Mass/Vol] 2.0 mg/dL Normal 1.5-2.2 [facility] Comment on above: Performed By: #### L 506.1001, L100.0100, L500.4100, L501.5200, L500.4050, L501.9520, L501.9910, L503.0106 #### [facility] [address] [place], [place], [address] Magnesium measurement (mass/ volume)Ordered By: Yasmeen Roth on 09-27-2024 Magnesium (Unsp spec) [Mass/Vol] 2.0 mg/dL 1.5-2.2 [facility] Mean corpuscular hemoglobin (MCH) determinationOrdered By: Yasmeenfiorella Roth on 09-27-2024 MCH (RBC) [Entitic mass] 30.5 pg 27.0-32.0 [facility] Mean corpuscular hemoglobin concentration (MCHC) determinationOrdered By: Yasmeen Roth on 09-27-2024 MCHC (RBC) [Mass/Vol] 33.9 g/dL 32-36 [facility] Mean platelet volume determi nationOrdered By: Yasmeen Roth on 09-27-2024 Platelet mean volume (Bld) [Entitic vol] 9.4 fL 6.2-12.0 [facility] Monocyte percentageOrdered B y: Yasmeen Roth on 09-27-2024 Monocytes/100 WBC (Bld) 11.0 % High 0-10 [facility] Neutrophil percentageOrdered By: Yasmeen Roth on 09-27-2024 Neutrophils/100 WBC (Bld) 59.5 % 47-70 [facility] Nucleated red blood cell per centageOrdered By: Yasmeen Roth on 09-27-2024 Nucleated RBC/100 WBC (Bld) [Ratio] 0 % 0-5 [facility] PSA,Total - Annual Screenon 09-27-2024 PSA,TOT SCREEN 3.22 ng/mL Normal 0.02-4.00 [facility] Comment on above: Result Comment: This test was performed using the [employer] tPSA method. Measured values of a patient??sample can vary depending on the testing procedure used. PSA values determined on patient samples by different testing procedures cannot be used interchangeably. If there is a change in PSA assays while monitoring therapy, sequential testing should be performed to confirm baseline values. Performed By: #### L 506.1001, L100.0100, L500.4100, L501.5200, L500.4050, L501.9520, L501.9910, L503.0106 #### [facility] [address] [place], [address] Platelet countOrdered By: Iveth Roth on 09-27-2024 Platelets (Bld) [#/Vol] 328 10*3/uL 150-450 [facility] Potassium measurement (mass/ volume)Ordered By: Yasmeen Roth on 09-27-2024 Potassium (Unsp spec) [Mass/Vol] 3.7 mmol/L 3.3-5.1 [facility] Comment on above: Hemolysis present, R esults could be affected. RBC Auto (Bld) [#/Vol]Ordere d By: Yasmeen Roth on 09-27-2024 RBC (Bld) [#/Vol] 4.49 10*6/uL Low 4.6-6.2 [facility] Screening total cholesterol/ high density lipoprotein (HDL) cholesterol ratioOrdered By: Yasmeen Roth on 09-27-2024 Cholesterol.total/Choles terol in HDL [Mass ratio] 3.52 {ratio} [facility] Serum creatinine measurement (mass/volume)Ordered By: Yasmeen Roth on 09-27-2024 Creatinine [Mass/Vol] 1.06 mg/dL 0.70-1.20 [facility] Serum globulin measurementOr dered By: Yasmeen Roth on 09-27-2024 Globulin (S) [Mass/Vol] 3.3 g/dL 2.2-4.2 [facility] Serum glucose measurement (m ass/volume)Ordered By: Yasmeen Roth on 09-27-2024 Glucose [Mass/Vol] 102 mg/dL High 70-99 [facility] Serum or plasma alanine arizmendi otransferase (ALT) measurementOrdered By: Yasmeen Roth on 09-27-2024 ALT [Catalytic activity/Vol] 25 U/L <47 [facility] Serum or plasma albumin ashanti urement (mass/volume)Ordered By: Yasmeen Roth on 09-27-2024 Albumin [Mass/Vol] 4.0 g/dL 3.4-4.8 [facility] Serum or plasma albumin/glob ulin mass ratioOrdered By: Yasmeen Roth on 09-27-2024 Albumin/Globulin [Mass ratio] 1.2 {ratio} 0.9-2.4 [facility] Serum or plasma alkaline ezequiel sphatase measurementOrdered By: Yasmeen Roth on 09-27-2024 ALP [Catalytic activity/Vol] 64 U/L 40-129 [facility] Serum or plasma calcium ashanti urement (mass/volume)Ordered By: Yasmeen Roth on 09-27-2024 Calcium [Mass/Vol] 9.7 mg/dL 7.6-11.0 [facility] Serum or plasma cholesterol in HDL measurement (mass/volume)Ordered By: Yasmeen Roth on 09-27-2024 Cholesterol in HDL [Mass/Vol] 52 mg/dL >40 [facility] Comment on above: National Cholesterol Education Program (NCEP) guidelines:<40 mg/dL: Low HDL-cholesterol (major risk factor for CHD)>= 60 mg/dL: High HDL-cholesterol (negative risk factor for CHD)HDL-cholesterol is affected by a number of factors, e.g. smoking, exercise, hormones, sex and age. Serum or plasma cholesterol measurement (mass/volume)Ordered By: Yasmeen Roth on 09-27-2024 Cholesterol [Mass/Vol] 182 mg/dL <201 [facility] Comment on above: Cholesterol level, D esirable <200 mg/dLBorderline high cholesterol 200-239 mg/dLHigh cholesterol >=240 mg/dLRecommendations of the NCEP Adult Treatment Panel for the following risk-cutoff thresholds for the [place] population. Serum or plasma urea nitroge n measurement (mass/volume)Ordered By: Yasmeen Roth on 09-27-2024 Urea nitrogen [Mass/Vol] 18 mg/dL - [facility] Sodium levelOrdered By: Princess Roth on 09-27-2024 Sodium [Moles/Vol] 138 mmol/L 133-145 [facility] TSH DL <= 0.005 mIU/L QnOrde red By: Yasmeen Roth on 09-27-2024 TSH Qn 1.850 uIU/mL 0.300-4.200 [facility] Thyroid Stim Hormone (TSH)on 09-27-2024 TSH 1.850 uIU/mL Normal 0.300-4.200 [facility] Comment on above: Performed By: #### L 506.1001, L100.0100, L500.4100, L501.5200, L500.4050, L501.9520, L501.9910, L503.0106 #### [facility] [address] [place], [place], [address] Total proteinOrdered By: Jes Roth on 09-27-2024 Protein [Mass/Vol] 7.3 g/dL 5.9-8.4 [facility] Triglycerides measurementOrd ered By: Yasmeen Roth on 09-27-2024 Triglyceride [Mass/Vol] 143 mg/dL <199 [facility] Comment on above: The drugs N-Acetylcy steine and Metamizole may falsely depress this assay. Normal range: <150 mg/dLBorderline High: 150-199 mg/dLHigh: 200-499 mg/dLVery High: >500 mg/dL Vitamin B12on 09-27-2024 Cobalamin (Vitamin B12) [Mass/Vol] 850 pg/mL Normal 180-914 [facility] Comment on above: Performed By: #### L 506.1001, L100.0100, L500.4100, L501.5200, L500.4050, L501.9520, L501.9910, L503.0106 #### [facility] [address] [place], [place], [address] Vitamin B12 ser/plasOrdered By: Yasmeen Roth on 09-27-2024 Cobalamin (Vitamin B12) [Mass/Vol] 850 pg/mL 180-914 [facility] Vitamin D,25 Hydroxyon 09-27 Vitamin D 25-OH 82.8 ng/mL Normal 30-100 [facility] Comment on above: Result Comment: Carmina min D Status Deficiency: <20 ng/mL (50nmol/L) Insufficiency: 20-30 ng/mL (50-75 nmol/L) Sufficiency: 30-100 ng/mL (75-250 nmol/L) Toxicity: >100 ng/mL (>250 nmol/L) Performed By: #### L 506.1001, L100.0100, L500.4100, L501.5200, L500.4050, L501.9520, L501.9910, L503.0106 #### [facility] [address] [place], [address] White blood cell (WBC) count Ordered By: Yasmeen Roth on 09-27-2024 WBC (Bld) [#/Vol] 7.6 10*3/uL 4.4-11.0 [facility] .GFRon 06-14-2022 GFR >60 Normal [facility] ([place]) Comment on above: Result Comment: GFR Population mean for , Non- Americans Ages 20-29 = 116 mL/min/1.73 sq.m. Ages 30-39 = 107 mL/min/1.73 sq.m. Ages 40-49 = 99 mL/min/1.73 sq.m. Ages 50-59 = 93 mL/min/1.73 sq.m. Ages 60-69 = 85 mL/min/1.73 sq.m. Ages 70+ = 75 mL/min/1.73 sq.m. Chronic Kidney Disease: Less than 60 mL/min/1.73 square meters End Stage Renal Disease: Less than 15 mL/min/1.73 square meters Performed By: #### G FR, BMP #### [address] [address] GFR Non- >60 Normal [facility] ([place]) Comment on above: Result Comment: GFR Population mean for , Non- Americans Ages 20-29 = 116 mL/min/1.73 sq.m. Ages 30-39 = 107 mL/min/1.73 sq.m. Ages 40-49 = 99 mL/min/1.73 sq.m. Ages 50-59 = 93 mL/min/1.73 sq.m. Ages 60-69 = 85 mL/min/1.73 sq.m. Ages 70+ = 75 mL/min/1.73 sq.m. Chronic Kidney Disease: Less than 60 mL/min/1.73 square meters End Stage Renal Disease: Less than 15 mL/min/1.73 square meters Performed By: #### Edwin PHELPS, BMP #### [address] 06[address]14-2022 BUN/Creatinine Ratio 18.1 ratio Normal 10.0-22.0 [facility] ([place]) Comment on above: Performed By: #### Edwin PHELPS, BMP #### [address] [address] Calcium [Mass/Vol] 10.1 mg/dL Normal 8.7-10.4 [facility] ([place]) Comment on above: Performed By: #### Edwin FR, BMP #### [address] [address] Chloride [Moles/Vol] 101 mmol/L Normal 98-110 [facility] ([place]) Comment on above: Performed By: #### G FR, BMP #### [address] [address] CO2 [Moles/Vol] 32 mmol/L Normal 22-32 [facility] ([place]) Comment on above: Performed By: #### G FR, BMP #### [address] [address] Creatinine [Mass/Vol] 1.16 mg/dL Normal 0.60-1.40 [facility] ([place]) Comment on above: Performed By: #### G FR, BMP #### [address] [address] Electrolyte Balance 8.0 mEq/L Normal 4.0-15.0 [facility] ([place]) Comment on above: Performed By: #### G FR, BMP #### [facility] [address] [place] [address] Glucose [Mass/Vol] 103 mg/dL Normal 82-115 [facility] ([place]) Comment on above: Performed By: #### G , BMP #### [address] [address] Potassium [Moles/Vol] 3.9 mmol/L Normal 3.5-5.0 [facility] ([place]) Comment on above: Performed By: #### G , BMP #### [address] [address] Sodium [Moles/Vol] 141 mmol/L Normal 136-145 [facility] ([place]) Comment on above: Performed By: #### G , BMP #### [address] [address] Urea nitrogen [Mass/Vol] 21.0 mg/dL Normal 8.0-22.0 [facility] ([place]) Comment on above: Performed By: #### G , BMP #### [address] [address] [address] ABD W CONTRASTon 12-27-19 CT ABD W CONTRAST [place] [address] Name: ALEXI LUEVANO Phys: IAN MUKHERJEE M.D. : [birth year] Age: 76 Sex: M Acct: [id number] Loc: RAD CT Exam Date: 12/26/21 Status: REG CLI Radiology No.: Unit Number: [id number] Exam # Type/Exam [id number] CT / CT ABD W CONTRAST EXAMINATION: CT ABDOMEN WITH CONTRAST 12/26/2021 5:04 pm TECHNIQUE: CT of the abdomen was performed with the administration of intravenous contrast. Multiplanar reformatted images are provided for review. Automated exposure control, iterative reconstruction, and/or weight based adjustment of the mA/kV was utilized to reduce the radiation dose to as low as reasonably achievable. COMPARISON: CT abdomen and pelvis February 13, 2021, abdomen ultrasound December 14, 2009 2 HISTORY: ORDERING SYSTEM PROVIDED HISTORY: TECHNOLOGIST PROVIDED HISTORY: Reason for Exam: . Liver lesions FINDINGS: Lower Chest: An inter atrial device is stable, probably a PFO closure device. Coronary calcifications are again seen. Organs: In the left hepatic lobe there is a lesion anteriorly which is low-attenuation on the noncontrast images, develops incomplete peripheral enhancement on arterial phase images, begins to fill in on venous phase images and is largely isoattenuating to liver parenchyma on delays. This is consistent with a hemangioma. Size is 1.7 cm x 2 cm, stable. No new or additional liver lesions are noted. There are innumerable calcified granulomas in the liver and the spleen. The kidneys are normal. The adrenals are normal. The aorta demonstrates minimal atherosclerosis without aneurysm. GI/Bowel: No evidence of obstruction. Mild stool burden. Peritoneum/Retroper itoneum: No free air or ascites. No lymphadenopathy. Bones/Soft Tissues: Degenerative changes are noted in the spine. IMPRESSION: Unchanged 2 cm left hepatic lobe hemangioma. Electronically signed By Evaristo Pritchett 12/26/2021 6:00:13 PM EST Workstation ID : [id number] < > Reported By: EVARISTO PRITCHETT M.D. Signed In Fluency By: EVARISTO PRITCHETT M.D. << Signature on File>> Reported By: EVARISTO PRITCHETT M.D. Signed By: EVARISTO PRITCHETT M.D. Tests performed at: [address] [address] Normal [facility] CT ABDOMEN W IVCONon 022 [facility] CBCon 12-18-2021 BASO# 0.10 x10(3) Normal 0.00-0.10 [facility] Comment on above: Performed By: #### L 200.0010 #### [facility] [address] [place] [address] Basophils/100 WBC (Bld) 1.2 % High 0.0-1.0 [facility] Comment on above: Performed By: #### L 200.0010 #### [facility] [address] [place] [address] EOS# 0.20 x10(3) Normal 0.00-0.54 [facility] Comment on above: Performed By: #### L 200.0010 #### [facility] [address] [place] [address] Eosinophils/100 WBC (Bld) 3.3 % Normal 0.5-4.9 [facility] Comment on above: Performed By: #### L 200.0010 #### [facility] [address] [place] [address] Erythrocyte distribution width (RBC) [Ratio] 14.2 % Normal 12.7-15.3 [facility] Comment on above: Performed By: #### L 200.0010 #### [facility] [address] [place] [address] Hematocrit (Bld) [Volume fraction] 42.0 % Normal 42.0-51.0 [facility] Comment on above: Performed By: #### L 200.0010 #### [facility] [address] [place] [address] Hemoglobin (Bld) [Mass/Vol] 13.7 g/dL Low 14.0-17.2 [facility] Comment on above: Performed By: #### L 200.0010 #### [facility] [address] [place] [address] LYMPH# 1.30 x10(3) Normal 1.00-3.50 [facility] Comment on above: Performed By: #### L 200.0010 #### [facility] [address] [place] [address] Lymphocytes/100 WBC (Bld) 21.5 % Normal 16.0-48.0 [facility] Comment on above: Performed By: #### L 200.0010 #### [facility] [address] [place] [address] MCH (RBC) [Entitic mass] 29.6 pg Normal 28.8-32.2 [facility] Comment on above: Performed By: #### L 200.0010 #### [facility] [address] [place] [address] MCHC (RBC) [Mass/Vol] 32.6 g/dL Low 33.0-36.0 [facility] Comment on above: Performed By: #### L 200.0010 #### [facility] [address] [place] [address] MCV (RBC) [Entitic vol] 90.7 fL Normal 80.0-94.0 [facility] Comment on above: Performed By: #### L 200.0010 #### [facility] [address] [place] [address] MONO# 0.60 x10(3) Normal 0.30-0.80 [facility] Comment on above: Performed By: #### L 200.0010 #### [facility] [address] [place] [address] Monocytes/100 WBC (Bld) 9.9 % Normal 4.3-11.2 [facility] Comment on above: Performed By: #### L 200.0010 #### [facility] [address] [place] [address] NEUT# 3.80 x10(3) Normal 1.40-6.50 [facility] Comment on above: Performed By: #### L 200.0010 #### [facility] [address] [place] [address] Neutrophils/100 WBC (Bld) 64.1 % Normal 45.0-73.0 [facility] Comment on above: Performed By: #### L 200.0010 #### [facility] [address] [place] [address] Platelet mean volume (Bld) [Entitic vol] 8.1 fL Normal 7.4-9.2 [facility] Comment on above: Performed By: #### L 200.0010 #### [facility] [address] [place] [address] 52756 PLT 315 X10(3) Normal 150-450 [facility] Comment on above: Performed By: #### L 200.0010 #### [facility] [address] [place] [address] 50233 RBC 4.62 x10(6) Low 4.80-5.50 [facility] Comment on above: Performed By: #### L 200.0010 #### [facility] [address] [place] [address] 58616 WBC 5.9 x10(3) Normal 4.5-10.0 [facility] Comment on above: Performed By: #### L 200.0010 #### [facility] [address] [place] [address] 25884 CMPon 12-18-2021 A:G RATIO 1.59 Normal 1.1-2.5 [facility] Comment on above: Performed By: #### L 100.0005 #### [facility] [address] [place] [address] 75988 Albumin [Mass/Vol] 4.3 g/dL Normal 3.5-5.2 [facility] Comment on above: Performed By: #### L 100.0005 #### [facility] [address] [place] [address] 36136 ALK. PHOS 55 U/L Normal 40-130 [facility] Comment on above: Performed By: #### L 100.0005 #### [facility] [address] [place] [address] 52916 ALT [Catalytic activity/Vol] 17 U/L Normal 5-41 [facility] Comment on above: Performed By: #### L 100.0005 #### [facility] [address] [place] [address] 74310 Anion gap [Moles/Vol] 13.8 mmol/L Low 15-22 [facility] Comment on above: Performed By: #### L 100.0005 #### [facility] [address] [place] [address] 39475 AST [Catalytic activity/Vol] 28 U/L Normal 5-40 [facility] Comment on above: Performed By: #### L 100.0005 #### [facility] [address] [place] [address] 04913 Bilirubin [Mass/Vol] 0.5 mg/dL Normal 0.2-1.2 On license of [facility] Comment on above: Performed By: #### L 100.0005 #### [facility] [address] [place] [address] 94078 Calcium [Mass/Vol] 9.8 mg/dL Normal 8.8-10.2 [facility] Comment on above: Performed By: #### L 100.0005 #### [facility] [address] [place] [address] 01595 Chloride [Moles/Vol] 101 mmol/L Normal 98-107 On license of [facility] Comment on above: Performed By: #### L 100.0005 #### [facility] [address] [place] [address] 30303 CO2 [Moles/Vol] 30 mmol/L High 22-29 [facility] Comment on above: Performed By: #### L 100.0005 #### [facility] [address] [place] [address] 56994 Creatinine [Mass/Vol] 0.99 mg/dL Normal 0.70-1.20 [facility] Comment on above: Performed By: #### L 100.0005 #### [facility] [address] [place] [address] 88767 eGFR if AFR KAYLEEN > 60 ml/min/1.73m2 Normal [facility] Comment on above: Result Comment: eGFR >= 60 Indicates normal kidney function. * eGFR IS AN ESTIMATE * (AFR KAYLEEN = ) (non-AFR AM = NON-) MDRD calculation used in the eGFR should not be used to dose medications. For further limitations of the eGFR please refer to the Physician Website or the National Kidney Disease Education Program website (www.nkdep.nih.gov). Performed By: #### L 100.0005 #### [facility] [address] [place] [address] 47985 eGFR nonAFR Kayleen > 60 ml/Min/1.73m2 [facility] Comment on above: Performed By: #### L 100.0005 #### [facility] [address] [place] [address] 19681 Globulin (S) [Mass/Vol] 2.7 g/dL Normal 1.5-4.5 [facility] Comment on above: Performed By: #### L 100.0005 #### [facility] [address] [place] [address] 75263 Glucose [Mass/Vol] 113 mg/dL Normal 82-115 [facility] Comment on above: Performed By: #### L 100.0005 #### [facility] [address] [place] [address] 75936 Potassium [Moles/Vol] 3.8 mmol/L Normal 3.5-5.0 [facility] Comment on above: Performed By: #### L 100.0005 #### [facility] [address] [place] [address] 70902 Protein [Mass/Vol] 7.0 g/dL Normal 6.4-8.3 [facility] Comment on above: Performed By: #### L 100.0005 #### [facility] [address] [place] [address] 79923 Sodium [Moles/Vol] 141 mmol/L Normal 135-145 [facility] Comment on above: Performed By: #### L 100.0005 #### [facility] [address] [place] [address] 46267 Urea nitrogen [Mass/Vol] 16 mg/dL Normal 8-23 [facility] Comment on above: Performed By: #### L 100.0005 #### [facility] [address] [place] [address] 51286 US ABDOMEN COMPLETEon 2021 [facility] US ABDOMINAL COMPLETEon US ABDOMINAL COMPLETE [address] [address] Name: ALEXI LUEVANO Phys: IAN MUKHERJEE M.D. : [birth year] Age: 76 Sex: M Acct: [id number] Loc: RAD US Exam Date: 12/14/21 Status: REG I Radiology No.: Unit Number: [id number] Exam # Type/Exam [id number] US / US ABDOMINAL COMPLETE EXAMINATION: COMPLETE ABDOMINAL ULTRASOUND 12/14/2021 10:48 am COMPARISON: Ultrasound abdomen 06/16/2021. CT abdomen pelvis 02/13/2021. HISTORY: ORDERING SYSTEM PROVIDED HISTORY: TECHNOLOGIST PROVIDED HISTORY: Reason for Exam: HEMANGIOMA LIVER. FINDINGS: LIVER: A mildly heterogeneous hepatic parenchymal echotexture is demonstrated. No intrahepatic biliary dilation. Smooth hepatic contour. In the area of previously noted mildly hyperechoic left lobe liver lesion, there is a relatively isoechoic region on today's exam measuring 1.6 x 1.5 x 1.3 cm with peripheral flow on color Doppler present. BILIARY SYSTEM: Gallbladder is unremarkable without evidence of pericholecystic fluid, wall thickening or stones. Negative sonographic Carlton's sign. Common bile duct is within normal limits measuring 0.3 cm. KIDNEYS: Kidneys are without pelvicaliectasis. Scattered areas of bilateral renal cortical thinning. Normal cortical echogenicity bilaterally. Right and left kidneys measure 10.1 x 6.6 x 5.8 cm and 11.8 x 5.2 x 6.0 cm respectively. PANCREAS: Visualized portions of the pancreas are unremarkable, with the tail not well visualized due to overlying bowel gas. SPLEEN: The spleen is obscured due to overlying bowel gas. IVC: Visible IVC is unremarkable. AORTA: Visible aorta is without aneurysm. OTHER: No evidence of ascites. IMPRESSION: 1. Previously hyperechoic lesion of the liver is not definitively identified on this exam. Involving the left hepatic lobe an isoechoic lesion to liver parenchyma with prominent peripheral flow on color Doppler is noted measuring up to 1.6 cm, indeterminate. Recommend further evaluation with contrast-enhanced CT of the abdomen pelvis. 2. Obscured spleen due to overlying bowel gas. Electronically signed By Josemanuel Anglin DO 12/14/2021 12:37:49 PM EST Workstation ID : [id number] < > Reported By: JOSEMANUEL ANGLIN D.O. Signed In Fluency By: JOSEMANUEL ANGLIN D.O. << Signature on File>> Reported By: JOSEMANUEL ANGLIN D.O. Signed By: LINNETTE,JOSEMANUEL A D.O. Tests performed at: [address] [address] Normal [facility] CBCon 06-21-2021 BASO# 0.10 x10(3) Normal 0.00-0.10 [facility] Comment on above: Performed By: #### L 200.0010 #### [facility] [address] [place] [address] 09866 Basophils/100 WBC (Bld) 0.9 % Normal 0.0-1.0 [facility] Comment on above: Performed By: #### L 200.0010 #### [facility] [address] [place] [address] 17528 EOS# 0.40 x10(3) Normal 0.00-0.54 [facility] Comment on above: Performed By: #### L 200.0010 #### [facility] [address] [place] [address] 51547 Eosinophils/100 WBC (Bld) 4.6 % Normal 0.5-4.9 [facility] Comment on above: Performed By: #### L 200.0010 #### [facility] [address] [place] [address] 44740 Erythrocyte distribution width (RBC) [Ratio] 13.8 % Normal 12.7-15.3 [facility] Comment on above: Performed By: #### L 200.0010 #### [facility] [address] [place] [address] 88114 Hematocrit (Bld) [Volume fraction] 45.6 % Normal 42.0-51.0 [facility] Comment on above: Performed By: #### L 200.0010 #### [facility] [address] [place] [address] 56831 Hemoglobin (Bld) [Mass/Vol] 14.5 g/dL Normal 14.0-17.2 [facility] Comment on above: Performed By: #### L 200.0010 #### [facility] [address] [place] [address] 11968 LYMPH# 1.90 x10(3) Normal 1.00-3.50 [facility] Comment on above: Performed By: #### L 200.0010 #### [facility] [address] [place] [address] 61730 Lymphocytes/100 WBC (Bld) 24.6 % Normal 16.0-48.0 [facility] Comment on above: Performed By: #### L 200.0010 #### [facility] [address] [place] [address] 02985 MCH (RBC) [Entitic mass] 29.2 pg Normal 28.8-32.2 [facility] Comment on above: Performed By: #### L 200.0010 #### [facility] [address] [place] [address] 45522 MCHC (RBC) [Mass/Vol] 31.9 g/dL Low 33.0-36.0 [facility] Comment on above: Performed By: #### L 200.0010 #### [facility] [address] [place] [address] 58636 MCV (RBC) [Entitic vol] 91.7 fL Normal 80.0-94.0 [facility] Comment on above: Performed By: #### L 200.0010 #### [facility] [address] [place] [address] 84866 MONO# 0.90 x10(3) High 0.30-0.80 [facility] Comment on above: Performed By: #### L 200.0010 #### [facility] [address] [place] [address] 74689 Monocytes/100 WBC (Bld) 11.9 % High 4.3-11.2 [facility] Comment on above: Performed By: #### L 200.0010 #### [facility] [address] [place] [address] 91815 NEUT# 4.50 x10(3) Normal 1.40-6.50 [facility] Comment on above: Performed By: #### L 200.0010 #### [facility] [address] [place] [address] 82819 Neutrophils/100 WBC (Bld) 58.0 % Normal 45.0-73.0 [facility] Comment on above: Performed By: #### L 200.0010 #### [facility] [address] [place] [address] 08850 Platelet mean volume (Bld) [Entitic vol] 8.0 fL Normal 7.4-9.2 [facility] Comment on above: Performed By: #### L 200.0010 #### [facility] [address] [place] [address] 59554 PLT 380 X10(3) Normal 150-450 [facility] Comment on above: Performed By: #### L 200.0010 #### [facility] [address] [place] [address] 98735 RBC 4.97 x10(6) Normal 4.80-5.50 [facility] Comment on above: Performed By: #### L 200.0010 #### [facility] [address] [place] [address] 75181 WBC 7.8 x10(3) Normal 4.5-10.0 [facility] Comment on above: Performed By: #### L 200.0010 #### [facility] [address] [place] [address] 45699 CBC W Auto Differential pane l (Bld)on 06-21-2021 BASO ABS 0.10 x10(3) 0.00 - 0.10 x10(3) [facility] Basophils/100 WBC (Bld) 0.9 % 0.0 - 1.0 % [facility] EOS ABS 0.40 x10(3) 0.00 - 0.54 x10(3) [facility] Eosinophils/100 WBC (Bld) 4.6 % 0.5 - 4.9 % [facility] Erythrocyte distribution width (RBC) [Ratio] 13.8 % 12.7 - 15.3 % [facility] Hematocrit (Bld) [Volume fraction] 45.6 % 42.0 - 51.0 % [facility] Hemoglobin (Bld) [Mass/Vol] 14.5 g/dL 14.0 - 17.2 g/dL [facility] LYMPH ABS 1.90 x10(3) 1.00 - 3.50 x10(3) [facility] Lymphocytes/100 WBC (Bld) 24.6 % 16.0 - 48.0 % [facility] MCH (RBC) [Entitic mass] 29.2 pg 28. 8 - 32.2 pg [facility] MCHC (RBC) [Mass/Vol] 31.9 g/dL Low 33.0 - 36.0 g/dL [facility] MCV (RBC) [Entitic vol] 91.7 fL 80.0 - 94.0 fl [facility] MONO ABS 0.90 x10(3) High 0.30 - 0.80 x10(3) [facility] Monocytes/100 WBC (Bld) 11.9 % High 4.3 - 11.2 % [facility] Neutrophil Ab 4.50 x10(3) 1.40 - 6.50 x10(3) [facility] Neutrophils/100 WBC (Bld) 58.0 % 45.0 - 73.0 % [facility] Platelet Count 380 X10(3) 150 - 450 X10(3) [facility] Platelet mean volume (Bld) [Entitic vol] 8.0 fL 7.4 - 9.2 fl [facility] RBC 4.97 x10(6) 4.80 - 5.50 x10(6) [facility] WBC 7.8 x10(3) 4.5 - 10.0 x10(3) [facility] CMPon 06-21-2021 A:G RATIO 1.51 Normal 1.1-2.5 [facility] Comment on above: Performed By: #### L 100.0005, L100.0350 #### [facility] [address] [place] [address] 38386 Albumin [Mass/Vol] 4.4 g/dL Normal 3.5-5.2 [facility] Comment on above: Performed By: #### L 100.0005, L100.0350 #### [facility] [address] [place] [address] ALK. PHOS 60 U/L Normal 40-130 [facility] Comment on above: Performed By: #### L 100.0005, L100.0350 #### [facility] [address] [place] [address] 56451 ALT [Catalytic activity/Vol] 23 U/L Normal 5-41 [facility] Comment on above: Performed By: #### L 100.0005, L100.0350 #### [facility] [address] [place] [address] 88761 Anion gap [Moles/Vol] 16.8 mmol/L Normal 15-22 [facility] Comment on above: Performed By: #### L 100.0005, L100.0350 #### [facility] [address] [place] [address] 70015 AST [Catalytic activity/Vol] 30 U/L Normal 5-40 [facility] Comment on above: Performed By: #### L 100.0005, L100.0350 #### [facility] [address] [place] [address] 43416 Bilirubin [Mass/Vol] 0.3 mg/dL Normal 0.2-1.2 On license of [facility] Comment on above: Performed By: #### L 100.0005, L100.0350 #### [facility] [address] [place] [address] 01313 Calcium [Mass/Vol] 10.0 mg/dL Normal 8.8-10.2 [facility] Comment on above: Performed By: #### L 100.0005, L100.0350 #### [facility] [address] [place] [address] 44510 Chloride [Moles/Vol] 98 mmol/L Normal 98-107 On license of [facility] Comment on above: Performed By: #### L 100.0005, L100.0350 #### [facility] [address] [place] [address] 75853 CO2 [Moles/Vol] 27 mmol/L Normal 22-29 [facility] Comment on above: Performed By: #### L 100.0005, L100.0350 #### [facility] [address] [place] [address] 11338 Creatinine [Mass/Vol] 1.01 mg/dL Normal 0.70-1.20 [facility] Comment on above: Performed By: #### L 100.0005, L100.0350 #### [facility] [address] [place] [address] 33603 eGFR if AFR KAYLEEN > 60 ml/min/1.73m2 [facility] Comment on above: Result Comment: eGFR >= 60 Indicates normal kidney function. * eGFR IS AN ESTIMATE * (AFR KAYLEEN = ) (non-AFR AM = NON-) MDRD calculation used in the eGFR should not be used to dose medications. For further limitations of the eGFR please refer to the Physician Website or the National Kidney Disease Education Program website (www.nkdep.nih.gov). Performed By: #### L 100.0005, L100.0350 #### [facility] [address] [place] [address] 35328 eGFR nonAFR Kayleen > 60 ml/Min/1.73m2 Normal [facility] Comment on above: Performed By: #### L 100.0005, L100.0350 #### [facility] [address] [place] [address] 03889 Globulin (S) [Mass/Vol] 2.9 g/dL Normal 1.5-4.5 [facility] Comment on above: Performed By: #### L 100.0005, L100.0350 #### [facility] [address] [place] [address] 76156 Glucose [Mass/Vol] 95 mg/dL Normal 82-115 [facility] Comment on above: Performed By: #### L 100.0005, L100.0350 #### [facility] [address] [place] [address] 32479 Potassium [Moles/Vol] 3.8 mmol/L Normal 3.5-5.0 [facility] Comment on above: Performed By: #### L 100.0005, L100.0350 #### [facility] [address] [place] [address] 06847 Protein [Mass/Vol] 7.3 g/dL Normal 6.4-8.3 [facility] Comment on above: Performed By: #### L 100.0005, L100.0350 #### [facility] [address] [place] [address] Sodium [Moles/Vol] 138 mmol/L Normal 135-145 [facility] Comment on above: Performed By: #### L 100.0005, L100.0350 #### [facility] [address] [place] [address] Urea nitrogen [Mass/Vol] 16 mg/dL Normal 8-23 [facility] Comment on above: Performed By: #### L 100.0005, L100.0350 #### [facility] [address] [place] [address] Comprehensive metabolic 2000 panelon 06-21-2021 Albumin [Mass/Vol] 4.4 g/dL 3.5 - 5.2 g/dL [facility] Albumin/Globulin [Mass ratio] 1.51 {ratio} 1.1 - 2.5 [facility] ALP [Catalytic activity/Vol] 60 U/L 40 - 130 U/L [facility] ALT [Catalytic activity/Vol] 23 U/L 5 - 41 U/L [facility] Anion gap [Moles/Vol] 16.8 mmol/L 15 - 2 2 mmol/L [facility] AST [Catalytic activity/Vol] 30 U/L 5 - 40 U/L [facility] Bilirubin [Mass/Vol] 0.3 mg/dL 0.2 - 1 .2 mg/dL [facility] Calcium [Mass/Vol] 10.0 mg/dL 8.8 - 10. 2 mg/dL [facility] Chloride [Moles/Vol] 98 mmol/L 98 - 10 7 mmol/L [facility] CO2 [Moles/Vol] 27 mmol/L 22 - 29 mmol/L [facility] Creatinine [Mass/Vol] 1.01 mg/dL 0.70 - 1.20 mg/dL [facility] eGFR-All Other Races > 60 ml/Min/1.73m2 [facility] GFR/1.73 sq M.predicted among blacks MDRD (S/P/Bld) [Vol rate/Area] mL/min/{1.73_m2} [facility] Globulin (S) [Mass/Vol] 2.9 g/dL 1.5 - 4.5 g/dL [facility] Glucose [Mass/Vol] 95 mg/dL 82 - 115 mg/dL [facility] Potassium [Moles/Vol] 3.8 mmol/L 3.5 - 5.0 mmol/L [facility] Protein [Mass/Vol] 7.3 g/dL 6.4 - 8.3 g/dL [facility] Sodium [Moles/Vol] 138 mmol/L 135 - 145 mmol/L [facility] Urea nitrogen [Mass/Vol] 16 mg/dL 8 - 23 mg/d L [facility] LIPASEon 06-21-2021 Lipase [Catalytic activity/Vol] 50 U/L Normal 13-60 [facility] Comment on above: Performed By: #### L 100.0005, L100.0350 #### [facility] [address] [place] [address] LIPASE BLDon 06-21-2021 Lipase [Catalytic activity/Vol] 50 U/L 13 - 60 U/L [facility] US ABDOMINAL COMPLETEon US ABDOMINAL COMPLETE [address] [address] Name: ALEXI LUEVANO Phys: HARRIET CASANOVA SA N.P. : [birth year] Age: 76 Sex: M Acct: [id number] Loc: RAD US Exam Date: 06/16/21 Status: REG CLI Radiology No.: Unit Number: [id number] Exam # Type/Exam [id number] US / US ABDOMINAL COMPLETE EXAMINATION: Exam Title:COMPLETE ABDOMINAL ULTRASOUND Completed Time: 06/16/2021 10:03 am Procedure Description:ABDOMEN COMPLETE COMPARISON: No direct comparison available HISTORY: ORDERING SYSTEM PROVIDED HISTORY: TECHNOLOGIST PROVIDED HISTORY: Reason for Exam: ABD PAIN TECHNIQUE: Real-time grayscale and color imaging ultrasound was performed. FINDINGS: Pancreas head and body anterior aspect imaged and grossly normal in appearance. Remainder pancreas obscured. Hyperechoic rounded echo focus anterior aspect liver measures up to approximately 2.3 x 1.8 x 2.3 cm. This is best demonstrated image 8. It demonstrates marginal color flow. Included portions of liver otherwise demonstrate mild hyperechoic granular echogenicity. Hepatic venous flow demonstrated. Common bile duct measures 3.8 mm. Included portions of proximal mid and distal abdominal aorta normal in course and caliber. Mild bilateral renal cortical thinning. No hydronephrosis. Right kidney measures up to 11.7 cm left kidney 11.9 cm. Portions of kidneys are obscured. Renal color flow demonstrated. Gallbladder normal appearance. No Carlton sign. Spleen not evaluated on this exam. IMPRESSION: [] 1. Mildly hyperechoic liver mass measures up to 2.3 cm with marginal color flow. CT abdomen pelvis with oral and IV contrast is recommended for further evaluation. 2. Limited evaluation large portions of pancreas and portions of kidneys and liver. Electronically signed By Michael Rodríguez DO 06/16/2021 11:46:13 AM EST Workstation ID : [id number] < > Reported By: MICHAEL RODRÍGUEZ D.O. Signed In Fluency By: MICHAEL RODRÍGUEZ D.O. ADDENDUM ADDENDUM: CT abdomen pelvis dated February 13, 2021 now available for comparison. Additional findings: The hyperechoic rounded echo focus on current ultrasound anterior aspect left lobe measuring up to 2.3 cm correlates with a subtle hypervascular 2.2 cm focus anterior aspect left lobe liver axial image [address] This is not well defined by CT on the prior exam. Additional impression: 1. Ultrasound image findings felt most likely to relate to a benign vascular malformation such as a hemangioma. As this finding is best demonstrated by ultrasound, six-month follow-up ultrasound attention anterior aspect left lobe liver recommended to demonstrate stability. End addendum. Electronically signed By Michael Rodríguez DO 07/04/2021 3:47:49 PM EST Workstation ID : [id number] Addendum Dictated By: MICHAEL RODRÍGUEZ D.O. Addendum Signed In PowerScribe By: MICHAEL RODRÍGUEZ D.O. Addendum Transcribed By: 07/04/21 1547 RADIOLOGIS << Signature on File>> Reported By: MICHAEL RODRÍGUEZ D.O. Signed By: MICHAEL RODRÍGUEZ D.O. Tests performed at: [address] [address] Normal [facility] OPERATIVE PROCEDURESon 05-09 OPERATIVE PROCEDURES [facility] OPERATIVE REPORT NAME ACCOUNT SEX AGE ADMIT DISCHARGE PT MED. RECORD# NUMBER DATE DATE TYPE ALEXI LUEVANO [id number] M 75 04/26/21 04/26/21 2 A [id number] ROOM: [facility] DATE OF : 1945 DICTATING PHYSICIAN: Jocelynn Pickett DATE OF SURGERY: April 26, 2021 SURGEON: Jocelynn Pickett MD EMT INTERMEDIATE: ANESTHESIOLOGIST: ANESTHETIC: MAC. PREOPERATIVE DIAGNOSIS: Screening colonoscopy. POSTOPERATIVE DIAGNOSIS: Normal colonoscopy. OPERATION PERFORMED: Colonoscopy. COMPLICATIONS: None. ESTIMATED BLOOD LOSS: None. DRAINS: None. SPECIMEN: None. SIGNIFICANT FINDINGS: Bowel prep was good. No abnormalities. DISPOSITION: Home. Diet: Regular. Activity: Regular. Medication: Regular. RECOMMENDATION: Repeat screening colonoscopy at 82 years of age. DESCRIPTION OF OPERATION: Following initiation of MAC anesthesia, the patient was placed in the left lateral decubitus position. A digital rectal examination was performed. There were no findings on digital rectal examination. Flexible colonoscope was then introduced into the anus and advanced to the ileocecal junction under direct visualization. The scope was then slowly withdrawn and the colonic mucosa inspected meticulously. It was noted that the colonic prep was good. There were no abnormalities Page 1 of 2 ALEXI LUEVANO Operative Report ALEXI LUEVANO : 1945 appreciated along the entire length of the colon. The scope was then withdrawn into the rectum and retroflexed. There were no rectal abnormalities. The scope was then straightened, the colon desufflated, and the scope removed. The patient was then awakened and taken to the PACU in good and stable condition. Dictated By: Jocelynn Pickett MD 04/26/21 10:29 JOB #: [id number] Transcribed By: am 04/26/21 15:08 Electronically signed by: E-SIGN DR. PICKETT 05/09/21 09:56 Page 2 of 2 ALEXI LUEVANO Operative Report Normal [facility] CT ABDOMEN/PELVIS Won 2020 CT ABDOMEN/PELVIS [place] [address] Patient: ALEXI LUEVANO Phone#: : 1945 Age: 75 Gender: M Pt. Type: Out Account: [id number] Location: Ordering: [facility] Exam Date: 02/13/2021/11:07 Family Phys: Charge Code: [id number] Physician: Coos Order #: [id number] DLP Dose#: 20.0 mGy PROCEDURE: CT ABDOMEN/PELVIS WITH CONTRAST COMPARISON: [facility], XR, CHEST 2 VIEWS, 10/10/2020, 11:32. INDICATIONS: diverticulitis TECHNIQUE: After obtaining the patient's consent, CT images were created with non-ionic intravenous contrast and oral contrast material. All CT scans at this facility use dose modulation, iterative reconstruction, and/or weight based dosing when appropriate to reduce radiation dose to as low as reasonably achievable. IV CONTRAST: Omnipaque 350,80ml TOTAL DOSE: 20.0 CTDIvol(mGy) FINDINGS: LIVER: Calcified granulomas are present. No enlargement, atrophy, abnormal density, or significant focal lesion. BILIARY: Normal. No visible dilatation or calcification. PANCREAS: Normal. No lesion, fluid collection, ductal dilatation, or atrophy. SPLEEN: Calcified granulomas are present. No enlargement or focal lesion. KIDNEYS: Normal. No mass, obstruction, or calcification. ADRENALS: Normal. No mass or enlargement. AORTA/VASCULAR: Normal. No aneurysm or dissection. RETROPERITONEUM: Normal. No mass or adenopathy. BOWEL/MESENTERY: Normal. No visible mass, obstruction, or bowel wall thickening. ABDOMINAL WALL: Small umbilical hernia with fat is present. URINARY BLADDER: Normal. No visible focal wall thickening, lesion, or calculus. PELVIC NODES: Normal. No adenopathy. PELVIC ORGANS: Normal. No visible mass. Pelvic organs appropriate for patient age. BONES: Mild degenerative changes of the spine are present. LUNG BASES: Normal. No visible pulmonary or pleural disease. OTHER: Negative. Continued Report - Page 2 of 2 Patient: ALEXI LUEVANO Phone#: : 1945 Age: 75 Gender: M Pt. Type: Out Account: [id number] Location: Ordering: [facility] Exam Date: 02/13/2021/11:07 Family Phys: Charge Code: [id number] Physician: Coos Order #: [id number] DLP Dose#: 20.0 mGy CONCLUSION: 1. There is no evidence of acute abdominal or pelvic abnormality. Dictated by: Padmaja Mauricio MD on 02/13/2021 at 13:35 Approved by: Padmaja Mauricio MD on 02/13/2021 at 13:[address] [facility] BMP with eGFRon 02-09-2021 AGE [address] [facility] Comment on above: Performed By: #### 2 00375 #### [facility],[address] [place] [address] Anion gap [Moles/Vol] 10 mmol/L Normal 10 - 20 [facility] Comment on above: Performed By: #### 2 75341 #### [facility],[address] [place] [address] 20293 BMP with eGFR Normal [facility] Comment on above: Result Comment: BASI C METABOLIC PANEL Performed By: #### 2 74533 #### [facility],[address] [place], [place] [id number] Calcium [Mass/Vol] 9.5 mg/dL Normal 8.5 - 10.1 [facility] Comment on above: Performed By: #### 2 88557 #### [facility],[address] [place] [address] 83211 Chloride [Moles/Vol] 103 mmol/L Normal 98 - 107 [facility] Comment on above: Performed By: #### 2 77968 #### [facility],[address] [place] [address] 78000 CO2 [Moles/Vol] 32.1 mmol/L High 21.0 - 32.0 [facility] Comment on above: Performed By: #### 2 35531 #### [facility],[address] [place] [address] 64960 Creatinine [Mass/Vol] 1.08 mg/dL Normal 0.70 - 1.30 [facility] Comment on above: Performed By: #### 2 11411 #### [facility],[address] [place] [address] 78295 GFR/1.73 sq M.predicted among non-blacks MDRD (S/P/Bld) [Vol rate/Area] mL/min/{1.73_m2} Normal 60 - 999 [facility] Comment on above: Performed By: #### 2 69485 #### [facility],[address] [place] [address] 74043 Result Comment: ACCO RDING TO THE NATIONAL KIDNEY DISEASE EDUCATION PROGRAM(NKDE), A NORMAL eGFR IS A VALUE GREATER THAN OR EQUAL TO 60 ML/MIN/1.73 SQ METERS. CHRONIC KIDNEY DISEASE: <60mL/MIN/1.73 SQ METERS KIDNEY FAILURE: <15mL/MIN/1.73 SQ METERS THIS TEST SHOULD ONLY BE USED FOR PATIENTS 18 YEARS OF AGE AND OLDER. Glucose [Mass/Vol] 100 mg/dL Normal 74 - 106 [facility] Comment on above: Performed By: #### 2 67815 #### [facility],[address] [place] [address] 36752 Potassium [Moles/Vol] 3.7 mmol/L Normal 3.5 - 5.1 [facility] Comment on above: Performed By: #### 2 62096 #### [facility],[address] [place] [address] 61318 Sodium [Moles/Vol] 141 mmol/L Normal 136 - 145 [facility] Comment on above: Performed By: #### 2 47305 #### [facility],[address] [place] [address] 91280 Urea nitrogen [Mass/Vol] 16 mg/dL Normal 7 - 18 [facility] Comment on above: Performed By: #### 2 03096 #### [facility],[address] [place] [address] 83436 CBC + DIFFon 02-09-2021 Baso # 0.20 x10EE3/UL High 0.00 - 0.10 [facility] Comment on above: Performed By: #### 2 16199 ####[facility],[address] [place] [address] 79934 Basophils/100 WBC (Bld) 2.4 % High 0.0 - 2.0 [facility] Comment on above: Performed By: #### 2 72036 ####[facility],[address] [place], [place] [address] CBC + DIFF Normal [facility] Comment on above: Result Comment: CBC- COMPLETE BLOOD COUNT Performed By: #### 2 35429 ####[facility],[address] [place] [address] 37353 EO # 0.50 x10EE3/UL Normal 0.00 - 0.50 [facility] Comment on above: Performed By: #### 2 70058 ####[facility],[address] [place] [address] 68289 Eosinophils/100 WBC (Bld) 6.6 % Normal 0.0 - 7.0 [facility] Comment on above: Performed By: #### 2 55887 ####[facility],[address] [place], [place] [address] Erythrocyte distribution width (RBC) [Ratio] 13.7 % Normal 12.0 - 15.6 [facility] Comment on above: Performed By: #### 2 66401 ####[facility],[address] [place] [address] 18962 Hematocrit (Bld) [Volume fraction] 42.4 % Normal 40.0 - 52.0 [facility] Comment on above: Performed By: #### 2 75057 ####[facility],[address] [place] [address] 48175 Hemoglobin (Bld) [Mass/Vol] 14.2 g/dL Normal 13.0 - 17.5 [facility] Comment on above: Performed By: #### 2 76466 ####[facility],[address] [place], [place] [address] Lymph # 2.10 x10EE3/UL Normal 0.80 - 2.80 [facility] Comment on above: Performed By: #### 2 38047 ####[facility],[address] [place] [address] 31336 Lymphocytes/100 WBC (Bld) 26.1 % Normal 20.0 - 45.0 [facility] Comment on above: Performed By: #### 2 68027 ####[facility],[address] [place] [address] MANUAL DIFF N/A Normal [facility] Comment on above: Performed By: #### 2 92296 ####[place] [address] MCH (RBC) [Entitic mass] 30 pg Normal 27 - 33 [facility] Comment on above: Performed By: #### 2 77873 ####[place] [address] MCHC 34 X10 3 Normal 32 - 36 [facility] Comment on above: Performed By: #### 2 55908 ####[address] [address] MCV (RBC) [Entitic vol] 91 fL Normal 81 - 98 [facility] Comment on above: Performed By: #### 2 06017 ####[place] [address] [place] # 0.90 x10EE3/UL Normal 0.20 - 1.00 [facility] Comment on above: Performed By: #### 2 08669 ####[address] [address] MONOS % 11.3 % High 0.0 - 10.0 [facility] Comment on above: Performed By: #### 2 49572 ####[facility],[address] [place] [address] 81589 Morphology Toni (Bld) [Interp] N/A Normal [facility] Comment on above: Result Comment: {CD] Performed By: #### 2 82341 ####[facility],[address] [place] [address] 22870 Neut # 4.30 x10EE3/UL Normal 1.50 - 7.10 [facility] Comment on above: Performed By: #### 2 17536 ####[facility],[address] [place] [address] 03187 Neutrophils/100 WBC (Bld) 53.6 % Normal 46.0 - 76.0 [facility] Comment on above: Performed By: #### 2 69228 ####[facility],[address] [place] [address] 64753 PLATELET 337 x10EE3/UL Normal 150 - 450 [facility] Comment on above: Performed By: #### 2 89302 ####[address] [address] Platelet mean volume (Bld) [Entitic vol] 7.7 fL Normal 6.4 - 10.5 [facility] Comment on above: Result Comment: AUTO MATED DIFFERENTIAL Performed By: #### 2 29871 ####[facility],[address] [place] [address] 29656 RBC 4.68 x 10EE6/UL Normal 4.50 - 6.[address] [facility] Comment on above: Performed By: #### 2 57384 ####[facility],[address] [place] [address] 20532 WBC 7.9 x 10EE3/UL Normal 4.5 - 10.8 [facility] Comment on above: Performed By: #### 2 75675 ####[address] [address] CV VENOUS LEG RTon 1 CV VENOUS LEG RT [place] [address] Patient: ALEIX LUEVANO Phone#: : 1945 Age: 75 Gender: M Pt. Type: Out Account: [id number] Location: Ordering: [facility] Exam Date: 01/09/2021/13:25 Family Phys: ROXANA HIDALGO Charge Code: [id number] Physician: Coos Order #: [id number] DLP Dose#: PROCEDURE: VENOUS DOPPLER RT LEG COMPARISON: None. INDICATIONS: PAIN TECHNIQUE: Color duplex Doppler ultrasound evaluation analysis was performed in the usual manner. CAN CARRIER: JENIFER RISK FACTORS FOR VENOUS DISEASE: Recent surgery Knee surgery in October Other leg pain EXAMINATION: RIGHT +Present -Reduced o Absent LEFT SPONT PHASIC AUG REFLUX COMP SPONT PHASIC AUG REFLUX COMP + + + o + CFV + + + o + + SFJ + + + o + FV (prox) + FV (mid) + FV (dist) + + + o + POP V + + + o + T/P TRUNK + + + o + PTV + + + o + PERONEAL V + GSV GASTROC SOLEAL V CAN CARRIER'S NOTES: Continued Report - Page 2 of 2 Patient: ALEXI LUEVANO Phone#: : 1945 Age: 75 Gender: M Pt. Type: Out Account: [id number] Location: Ordering: [facility] Exam Date: 01/09/2021/13:25 Family Phys: ROXANA HIDALGO Charge Code: [id number] Physician: Coos Order #: [id number] DLP Dose#: FINDINGS: THROMBI: None visible. COMPRESSIBILITY: Normal. OTHER: Negative. CONCLUSION: 1. There is no evidence of superficial or deep vein thrombus. Dictated by: Padmaja Mauricio MD on 01/09/2021 at 13:52 Approved by: Padmaja Mauricio MD on 01/09/2021 at 13:[address] [facility] OPERATIVE PROCEDURESon 11-01 OPERATIVE PROCEDURES [facility] OPERATIVE REPORT NAME ACCOUNT SEX AGE ADMIT DISCHARGE PT MED. RECORD# NUMBER DATE DATE TYPE ALEXI LUEVANO [id number] M 75 10/25/20 10/25/20 2 A [id number] ROOM: [facility] DATE OF : 1945 DICTATING PHYSICIAN: Maria G Hidalgo DATE OF SURGERY: October 25, 2020 SURGEON: Maria G Hidalgo MD EMT INTERMEDIATE: ANESTHESIOLOGIST: Ray Marx CRNA ANESTHETIC: General. PREOPERATIVE DIAGNOSIS: Right knee lateral meniscus tear. POSTOPERATIVE DIAGNOSIS: Right knee lateral meniscus tear, medial meniscus tear, medial synovial plica. OPERATION PERFORMED: Right knee diagnostic video arthroscopy, partial medial meniscectomy, partial lateral meniscectomy, and plica excision. COMPLICATIONS: None. ESTIMATED BLOOD LOSS: Minimal. INDICATIONS: The patient is a 75-year-old male with right knee pain. He failed conservative measures. Due to persistent discomfort, he had an MRI which was consistent with meniscus pathology. X-rays did not show severe arthritis. He did wish to have surgery. Appropriate informed consent was obtained and signed. FINDINGS: Findings showed a complex tear of the posterior horn of the medial meniscus, complex tear of the mid portion anterior horn of the lateral meniscus, medial synovial plica. He underwent partial medial meniscectomy, partial lateral meniscectomy, and plica excision. Pictures were taken throughout. DESCRIPTION OF OPERATION: The patient was taken to the OR and transferred to the OR table. He was given a general anesthetic. Appropriate timeout was performed. He was supine. His left lower extremity had ALEJANDRO hose and SCD on throughout, and that was padded over the end of the bed, which was flexed down. Right upper thigh was Page 1 of 2 ALEXI LUEVANO Operative Report ALEXI LUEVANO : 1945 well-padded and placed in the arthroscopic leg mukherjee. The right lower extremity was examined and found to be stable. Right lower extremity was prepped, padded, and draped in the usual orthopedic sterile fashion for the procedure. We began by injecting lidocaine with epinephrine into the medial and lateral portal sites. Most of this was washed out during the procedure. We established our lateral portal with a knife followed by a dull trocar taking me to the joint atraumatically. We visualized the patellofemoral joint. 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 There was a medial synovial plica noted, and pictures were taken. I went down the medial and lateral gutter going down the inner chondral notch. The ACL was identified and intact. I went to the medial compartment and identified a tear of the posterior horn of the medial meniscus. I went to the lateral compartment and identified a tear of the mid portion anterior horn of the lateral meniscus. At this point, the medial portal was established with the needle followed by a knife, followed by a dull trocar taking me to the joint. We probed the medial meniscus and found it to be a flap tear of the meniscus posterior horn. This was resected with the forward biter and shaver. This brought us back to stable meniscus tissue. Pictures were taken throughout. I went to the lateral compartment, and identified the lateral meniscus tear and probed it. We used a shaver and a biter to resect the tear at the mid portion anterior horn of the lateral meniscus. Posterior horn was intact of the lateral meniscus. At this point, the scope was placed posteromedial and posterolateral without pathology noted. ACL was probed and found to be intact. We went back to the patellofemoral joint and resected the plica with the shaver. Pictures were taken. Once the plica was excised, final diagnostic arthroscopy was carried out and no further pathology was noted. The knee was drained of the excess fluid. Arthroscopic instruments were removed. Portals were closed with simple suture. I injected 5 mL of lidocaine and 5 mL of Duramorph into the joint for postoperative pain. A sterile bandage was applied, and he was awoken from his anesthetic and transferred back to his own bed in recovery room in satisfactory condition. We will plan to use aspirin 81 mg once or twice a day for DVT prevention. Dictated By: Maria G Hidalgo MD 10/25/20 08:48 JOB #: [id number] Transcribed By: am 10/25/20 15:31 Electronically signed by: E-SIGN DR. MARIA G HIDALGO M.D. 10/30/20 09:54 Page 2 of 2 ALEXI LUEVANO Operative Report Normal [facility] CORONAVIRUS PCR - [facility] 10-24-2020 SARS-CoV-2 (COVID-19) RNA CAROL+probe Ql (Unsp spec) Negative Normal NORMAL: NEGATIVE [facility] Comment on above: Performed By: #### 2 93494 #### [facility],[address] [place] [address] SEND TO IC? YES Normal [facility] Comment on above: Result Comment: RESU LTS FAXED TO INFECTION CONTROL. SARS-CoV-2 THIS TEST IS BEING USED UNDER THE FDA EUA PROCEDURE. THIS ASSAY HAS BEEN VALIDATED IN THE [facility] FOR USE WITH NASOPHARYNGEAL SPECIMENS IN [facility]. INTERPRETIVE DATA LABORATORY TEST RESULTS SHOULD ALWAYS BE CONSIDERED IN THE CONTEXT OF CLINICAL OBSERVATIONS AND EPIDEMIOLOGICAL DATA IN MAKING FINAL DIAGNOSIS AND PATIENT MANAGEMENT DECISIONS. PATIENT MANAGEMENT SHOULD FOLLOW CURRENT CDC GUIDELINES. A POSITIVE TEST RESULT FOR COVID-19 INDICATES THAT RNA FROM SARS-CoV-2 WAS DETECTED, AND THE PATIENT IS INFECTED WITH THE VIRUS AND PRESUMED TO BE CONTAGIOUS. A NEGATIVE TEST RESULT FOR THIS TEST MEANS THAT SARS-CoV-2 RNA WAS NOT PRESENT IN THE SPECIMEN ABOVE THE LIMIT OF DETECTION. HOWEVER, A NEGATVIE RESULT DOES NOT RULE OUT COVID-19 AND SHOULD NOT BE USED THE SOLE BASIS FOR TREATMENT OR PATIENT MANAGEMENT DECISIONS. A NEGATIVE RESULT DOES NOT EXCLUDE THE POSSIBILITY OF COVID-19. WHEN DIAGNOSTIC TESTING IS NEGATIVE, THE POSSIBLILTY OF A FALSE NEGATIVE RESULT SHOULD BE CONSIDERED IN THE CONTEXT OF A PATIENT'S RECENT EXPOSURES AND THE PRESENCE OF CLINICAL SIGNS AND SYMPTOMS CONSISTENT WITH COVID-19. THE POSSIBILITY OF A FALSE NEGATIVE RESULT SHOULD ESPECIALLY BE CONSIDERED IF THE PATIENT'S RECENT EXPOSURES OR CLINICAL PRESENTATION INDICATE THAT COVID-19 IS LIKELY, AND DIAGNOSTIC TESTS FOR OTHER CAUSES OF ILLNESS (e.g., OTHER RESPIRATORY ILLNESS) ARE NEGATIVE. IF COVID-19 IS STILL SUSPECTED BASED ON EXPOSURE HISTORY TOGETHER WITH OTHER CLINICAL FINDINGS, RE-TESTED SHOULD BE CONSIDERED BY HEALTHCARE PROVIDERS IN CONSULTATION WITH PUBLIC HEALTH AUTHORITIES. Performed By: #### 2 66272 #### [facility],[address] [place] [address] BUNon 10-10-2020 Urea nitrogen [Mass/Vol] 18 mg/dL Normal 7 - 18 [facility] Comment on above: Performed By: #### 2 85637 #### [facility],[address] [place], [place] [id number] CHEST 2 VIEWSon 10-10-2020 CHEST 2 VIEWS [place] [address] Patient: ALEXI LUEVANO Phone#: : 1945 Age: 75 Gender: M Pt. Type: Out Account: [id number] Location: Ordering: [facility] Exam Date: 10/10/2020/11:32 Family Phys: ROXANA HIDALGO Charge Code: [id number] Physician: Coos Order #: [id number] DLP Dose#: PROCEDURE: X-RAY CHEST 2 VIEWS COMPARISON: None. INDICATIONS: Surgery clearance. FINDINGS: LUNGS: Chronic interstitial changes. No significant pulmonary parenchymal abnormalities. VASCULATURE: Normal. Unremarkable pulmonary vasculature. CARDIAC: Radiopaque density projects over the cardiac silhouette. Cardiac silhouette within normal limits. MEDIASTINUM: Aortic calcifications PLEURA: Normal. No effusion or pleural thickening. BONES: Normal. No fracture or visible bony lesion. OTHER: Negative. CONCLUSION: 1. No acute pulmonary parenchymal abnormality. 2. Radiopaque device projecting over the cardiac silhouette, correlate with procedure history. This may represent a closure device. Dictated by: Mignon Medina MD on 10/10/2020 at 19:14 Approved by: Mignon Medina MD on 10/10/2020 at 19:[address] [facility] GLUCOSEon 10-10-2020 Glucose [Mass/Vol] 108 mg/dL High 74 - 106 [facility] Comment on above: Performed By: #### 2 24285 #### [place] [address] HEMATOCRITon 10-10-2020 Hematocrit (Bld) [Volume fraction] 40.7 % Normal 40.0 - 52.0 [facility] Comment on above: Result Comment: {HH] Performed By: #### 2 51404 #### [facility],[address] [place] [address] HEMOGLOBINon 10-10-2020 Hemoglobin (Bld) [Mass/Vol] 13.9 g/dL Normal 13.0 - 17.5 [facility] Comment on above: Result Comment: {HH] Performed By: #### 2 02560 #### [facility],[address] [place], [place] [id number] Vital Signs Date Time Vital Sign Value Performing Clinician Faci lity 01-05-2025 13:10-0400 Body height 185.[address] Yasmeen Roth MD Work Phone: [facility] 01-05-2025 13:10-0400 Body mass index (BMI) [Ratio] 29 kg/m2 Dr. Yasmeen Roth MD Work Phone: [facility] 01-05-2025 13:10-0400 Body temperature 98.4 [degF] Dr. Yasmeen Roth MD Work Phone: [facility] 01-05-2025 13:10-0400 Body weight 99.[address] Yasmeen Roth MD Work Phone: [facility] 01-05-2025 13:10-0400 Diastolic blood pressure 70 mm[Hg] Dr. Yasmeen Roth MD Work Phone: [facility] 01-05-2025 13:10-0400 Heart rate 74 /min Dr. Yasmeen Roth MD Work Phone: [facility] 01-05-2025 13:10-0400 Respiratory rate 16 /min Dr. Yasmeen Roth MD Work Phone: [facility] 01-05-2025 13:10-0400 SaO2% (BldA) [Mass fraction] 96 % Dr. Yasmeen Roth MD Work Phone: [facility] 01-05-2025 13:10-0400 Systolic blood pressure 138 mm[Hg] Dr. Yasmeen Roth MD Work Phone: [facility] 09-27-2024 10:22-0400 Body height 185.[address] Yasmeen Roth MD Work Phone: [facility] 09-27-2024 10:22-0400 Body mass index (BMI) [Ratio] 29.2 kg/m2 Dr. Yasmeen Roth MD Work Phone: [facility] 09-27-2024 10:22-0400 Body temperature 98.4 [degF] Dr. Yasmeen Roth MD Work Phone: [facility] 09-27-2024 10:22-0400 Body weight 100.[address] Yasmeen Roth MD Work Phone: [facility] 09-27-2024 10:22-0400 Diastolic blood pressure 74 mm[Hg] Dr. Yasmeen Roth MD Work Phone: [facility] 09-27-2024 10:22-0400 Heart rate 76 /min Dr. Yasmeen Roth MD Work Phone: [facility] 09-27-2024 10:22-0400 Respiratory rate 16 /min Dr. Yasmeen Roth MD Work Phone: [facility] 09-27-2024 10:22-0400 SaO2% (BldA) [Mass fraction] 95 % Dr. Yasmeen Roth MD Work Phone: [facility] 09-27-2024 10:22-0400 Systolic blood pressure 150 mm[Hg] Dr. Yasmeen Roth MD Work Phone: [facility] 08-13-2023 14:14-0400 Body height 185.[address] Roxana Hidalgo Work Phone: [facility] 08-13-2023 14:14-0400 Body mass index (BMI) [Ratio] 29.5 kg/m2 Dr. Roxana Hidalgo Work Phone: [facility] 08-13-2023 14:14-0400 Body temperature 98.4 [degF] Dr. Roxana Hidalgo Work Phone: [facility] 08-13-2023 14:14-0400 Body weight 101.[address] Roxana Hidalgo Work Phone: [facility] 08-13-2023 14:14-0400 Diastolic blood pressure 76 mm[Hg] Dr. Roxana Hidalgo Work Phone: [facility] 08-13-2023 14:14-0400 Heart rate 77 /min Dr. Roxana Hidalgo Work Phone: [facility] 08-13-2023 14:14-0400 Respiratory rate 18 /min Dr. Roxana Hidalgo Work Phone: [facility] 08-13-2023 14:14-0400 SaO2% (BldA) [Mass fraction] 95 % Dr. Roxana Hidalgo Work Phone: [facility] 08-13-2023 14:14-0400 Systolic blood pressure 150 mm[Hg] Dr. Roxana Hidalgo Work Phone: [facility] Encounters Encounter Date Encounter Type Care Provider Facility Start: 01-05-[address] Yasmeen Roth MD -Cardiovascular Services Work Phone: Start: 01-05-2025 End: 01-05-[address] Yasmeen Roth MD Work Phone: -[facility] Start: 01-05-2025 End: 01-05-[address] Yasmeen Roth MD -[facility] Work Phone: Start: 09-27-2024 End: 09-27-[address] Yasmeen Roth MD -Laboratory Work Phone: Start: 09-27-2024 End: 09-27-[address] Yasmeen Roth MD -[facility] Work Phone: Start: 09-27-2024 End: 09-27-[address] Yasmeen Roth MD Work Phone: [facility] Work Phone: Start: 09-27-2024 End: 09-27-2024 ambulatory Yasmeen Roth Facility:[facility] Start: 08-19-2023 End: 08-19-[address] Roxana Hidalgo Work Phone: [facility] Work Phone: Start: 08-19-2023 End: 08-19-[address] Roxana Hidalgo Work Phone: [facility], [facility] Work Phone: Start: 08-14-2023 End: 08-14-[address] Roxana Hidalgo Work Phone: [facility] Work Phone: Start: 06-14-2022 End: 06-19-2022 ambulatory Benita HIDALGO MD Facility:A Start: 12-26-2021 End: 12-26-2021 Subsequent hospital visit by physician Provider [facility] Comment on above: MULTIFACE LIVERABD PAIN, HEMANGIOMA OF LIVER Start: 12-14-2021 End: 12-14-2021 Subsequent hospital visit by physician Provider [facility] Comment on above: HEMANGIOMA OF LIVER Start: 06-21-2021 End: 06-21-2021 Subsequent hospital visit by physician Provider [facility] Start: 04-26-2021 End: 04-26-2021 ambulatory [facility] Start: 02-13-2021 End: 02-13-2021 ambulatory ROXANA Isidro [facility] Start: 02-09-2021 End: 02-09-2021 ambulatory ROXANA Isidro [facility] Start: 01-10-2021 End: 04-10-2021 ambulatory FELTON Isidro [facility] Start: 01-09-2021 End: 01-09-2021 ambulatory ROXANA [facility] [facility] Start: 11-03-2020 End: 01-10-2021 ambulatory FELTON Isidro Aultman [facility] Start: 10-25-2020 End: 10-25-2020 ambulatory MARIA G Isidro Aultman [facility] Start: 10-23-2020 End: 10-23-2020 ambulatory ROXANA Isidro Aultman [facility] Start: 10-10-2020 End: 10-10-[address] HIDALGO [facility] Start: 10-10-2020 End: 10-10-2020 Encounter for other preprocedural examination MARIA G HIDALGO [facility] Start: 06-30-2020 End: 09-06-2020 ambulatory ROXANA ERVIN [facility] Procedures Date Procedure Procedure Detail Performing Clinician Start: 09-27-2024 Prostate specific an tigen measurement Dr. Yasmeen Roth MD Work Phone: Comment on above: This test was perfor med using the [employer] tPSA method. Measured values of a patient sample can vary depending on the testing procedure used. PSA values determined on patient samples by different testing procedures cannot be used interchangeably. If there is a change in PSA assays while monitoring therapy, sequential testing should be performed to confirm baseline values. Start: 09-27-2024 Vitamin D, 25-hydrox y measurement Dr. Yasmeen Roth MD Work Phone: Comment on above: Vitamin D StatusDefi ciency: <20 ng/mL (50nmol/L)Insufficiency: 20-30 ng/mL (50-75 nmol/L)Sufficiency: 30-100 ng/mL (75-250 nmol/L)Toxicity: >100 ng/mL (>250 nmol/L) Start: 08-19-2023 Ultrasound of scrotu m with Doppler and color flow imaging Dr. Roxana Hidalgo Work Phone: Start: 12-26-2021 Ct abdomen w/contras t material Ian Mukherjee MD Work Phone: Start: 12-14-2021 Us abdominal real ti me w/image documentation Ian Mukherjee MD Work Phone: Start: 06-21-2021 CBC + DIFF Ian Mukherjee MD Work Phone: Start: 06-21-2021 Comprehensive metabo lic 2000 panel - Serum or Plasma Ian Mukherjee MD Work Phone: Start: 06-21-2021 LIPASE BLD Ian Mukherjee MD Work Phone: Plan of Treatment Date Care Activity Detail Author CBC W Auto Differential panel - Blood [facility] Cobalamin (Vitamin B 12) [Mass/volume] in Serum or Plasma [facility] Comprehensive metabo lic 1999 panel - Serum or Plasma [facility] Lipid 1996 panel - Serum or Plasma [facility] Magnesium measurement [facility] Prostate specific antigen measurement [facility] Thyroid stimulating hormone measurement [facility] Unspecified body region [facility] US.doppler Lower extremity vein [facility] Vitamin D, 25-hydroxy measurement [facility] Payers Date Payer Category Payer Unknown [id number] 2024 Self-pay 2022 Medicare [id number] 2022 Private Health Insurance [id number] 1945 Unknown [id number] 2.16.84 [id number] 1945 Unknown [id number] 2.16.84 [id number] 1945 Unknown [id number] 2.16.84 [id number] 1945 Unknown [id number] 2.16.84 [id number] 1945 Unknown [id number] 2.16.84 [id number] 1945 Unknown [id number] 2.16.84 [id number] 1947 Unknown [id number] 2.16.84 [id number] 1945 Unknown [id number] 2.16.84 [id number] 1945 Unknown [id number] 2.16.84 [id number] 1945 Unknown [id number] 2.16.84 [id number] 1945 Unknown [id number] 2.16.8 [id number] Unknown [id number] Unknown [id number] 2.16.8 [id number] Unknown [id number] 2.16.8 [id number] Social History Date Type Detail Facility Start: 08-14-2023 Tobacco smoking status NCIS Tobacco smoking consumption unknown [facility] Start: 1945 Sex Assigned At Not on file [facility] Start: 1945 Sex Assigned At Male [facility] Start: 08-14-2023 End: 01-04-2025 Tobacco smoking status NHIS Never smoked tobacco (finding) [facility] Evaluation note 09-27-2024 Note Date & Type Note Facility 09-27-2024 Evaluation note Diagnosis Onset Date Resolution GERD (gastroesophageal reflux disease) acute September 27, 2024 1 0:16am Seasonal allergies acute September 272024 10:16am HTN (hypertension) chronic September 272024 10:16am [facility] Work Phone: Clinical Note 05-09-2021 Note Date & Type Note Facility 05-09-2021 Note [facility] HISTORY & PHYSICAL NAME ACCOUNT SEX AGE ADMIT DISCHARGE PT MED. RECORD# NUMBER DATE DATE TYPE ALEXI LUEVANO [id number] M 75 04/26/21 2 A [id number] ROOM: [facility] DATE OF : 49 DICTATING PHYSICIAN: Jocelynn Pickett CHIEF COMPLAINT: Colon cancer screening. HISTORY OF PRESENT ILLNESS: Mr. Luevano is a 75-year-old male who presents for colon cancer screening. Several months ago, he did complain of having left lower quadrant abdominal pain. He did receive a round of amoxicillin at the time, which helped ameliorate the pain. In addition, he reports having a CT scan of the abdomen and pelvis at that time which was within normal limits. He reports having 3 to 4 prior colonoscopies. All colonoscopies were normal. PAST MEDICAL HISTORY: Significant for hypertension. He did have a patent foramen ovale and a possible stroke. PAST SURGICAL HISTORY: He has had several knee surgeries. MEDICATIONS: See JUL. ALLERGIES: Aspirin. FAMILY HISTORY: Noncontributory. REVIEW OF SYSTEMS: Ten-system review of systems is negative. PHYSICAL EXAMINATION GENERAL APPEARANCE: He is alert, oriented, appropriate and in no acute distress. VITAL SIGNS: He is afebrile. Vital signs are stable and within normal limits. LUNGS: Lungs are clear to auscultation bilaterally. HEART: Regular rate and rhythm. ABDOMEN: Abdomen is soft, nontender and nondistended. EXTREMITIES: No cyanosis, edema or gross deformities. NEUROLOGIC: GCS is 15. Cranial nerves II through XII are grossly intact. He has 09/13 Page 1 of 2 ALEXI LUEVANO History & Physical ALEXI LUEVANO :1945 strength in all muscle groups, and sensation is grossly intact. IMPRESSION: A 75-year-old male requiring colon cancer screening. PLAN: I discussed the risks, benefits, and alternatives of colonoscopy. All questions were answered, and he voiced understanding and agreement with the procedure. Dictated By: Jocelynn Pickett MD 04/26/21 08:31 JOB #: [id number] Transcribed By: yina 04/26/21 09:59 Electronically signed by: E-SIGN DR. PICKETT 05/09/21 09:56 Update to H&P: [ ] No changes: I have examined the patient and reviewed the H&P and there are no changes. [ ] As previously dictated with the following changes: PHYSICIAN SIGNATURE: TIME: DATE: Page 2 of 2 ALEXI LUEVANO History & Physical [facility] Evaluation note Note Date & Type Note Facility Evaluation note Diagnosis Onset Date Swelling of left half of scrotum [facility] Work Phone: Evaluation note Note Date & Type Note Facility Evaluation note No assessment information availa ble [facility] Work Phone: Hospital Discharge instructions Note Date & Type Note Facility Hospital Discharge instructions Ambulatory OrdersPT Referral Location: None Selected [facility] Work Phone: Reason for referral (narrative) Note Date & Type Note Facility Reason for referral (narrative) No reason for referral information available [facility] Work Phone: Summary Purpose Family History Relationship Condition Age at Onset Recorded Date/T ivana Not Specified Hypertension Unknown Advance Directives No Advanced Directives Records FoundNo Advanced Directives Records FoundNo Advanced Directives Records FoundNo Advanced Directives Records FoundNo Advanced Directives Records Found Chief Complaint and Reason for Visit Chief Complaint Pain in Abdomen N50.89 Reason for Visit Swelling of left ayla f of scrotum Chief Complaint Admit Date Annual/Physical September 27, 2024 10:16 am Chief Complaint Admit Date Annual/Physical September 27, 2024 10:16 am INT LAB ORDERS September 27, 2024 11:22 am [facility] FU January 05, 2025 1: 02pm 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 January 05, 2025 2:15pm Reason for Visit Admit Date GERD (gastroesophageal reflux disease) M ay 2024 10:16am Seasonal allergies September 27, 2024 10:16 am HTN (hypertension) September 27, 2024 10:16 am Additional Source Comments (unrecognized sect ion and content) No Status Records FoundNo Status Records FoundNo Status Records FoundNo Status Records FoundNo Status Records Found INFORMATION SOURCE (unrecogn ized section and content) DATE CREATED AUTHOR 05/09/2021 [facility] DATE CREATED AUTHOR AUTHOR'S ORGANIZ ATION 12/22/2021 [facility] DATE CREATED AUTHOR AUTHOR'S ORGANIZ ATION 01/01/2022 [facility] DATE CREATED AUTHOR AUTHOR'S ORGANIZ ATION 08/02/2022 [facility] ([place] DATE CREATED AUTHOR AUTHOR'S ORGANIZ ATION 10/07/2024 [facility] Source Comments (unrecognize d section and content) In the event this informatio n is protected by the Federal Confidentiality of Alcohol and Drug Abuse Patient Records regulations: The Federal rules restrict any use of the information to criminally investigate or prosecute any alcohol or drug abuse patient.[facility] the event this information is protected by the Federal Confidentiality of Alcohol and Drug Abuse Patient Records regulations: The Federal rules restrict any use of the information to criminally investigate or prosecute any alcohol or drug abuse patient.[facility] the event this information is protected by the Federal Confidentiality of Alcohol and Drug Abuse Patient Records regulations: The Federal rules restrict any use of the information to criminally investigate or prosecute any alcohol or drug abuse patient.[facility] Care Teams (unrecognized sec tion and content) Team Status: Active Member Role Status Dates Dr. Yasmeen Roth MD Primary Care Provider Active Team Status: Inactive Member Role Status Dates Dr. Roxana Hidalgo MD Primary Care Provider Active Dr. Yasmeen Roth MD Attending Provider Active Team Status: Inactive Member Role Status Dates Dr. Yasmeen Roth MD Primary [facility] Provider, [facility] Active Team Status: Inactive Member Role Status Dates Dr. Yasmeen Roth MD Primary Care Provider Active Start: September 27, 2024 End: September 27, 2024 Dr. Yasmeen Roth MD Attending Provider Active Start: September 27, 2024 End: September 27, 2024 Team Status: Active Member Role/Relationship Status Dates Dr. Yasmeen Roth MD Primary Care Provider Active Team Status: Inactive Member Role/Relationship Status Dates Dr. Yasmeen Roth MD Primary Care Provider Active Start: September 27, 2024 End: September 27, 2024 Dr. Yasmeen Roth MD Attending Provider Active Start: September 27, 2024 End: September 27, 2024 Team Status: Inactive Member Role/Relationship Status Dates Dr. Yasmeen Roth MD Primary Care Provider Active Start: September 27, 2024 End: September 27, 2024 Dr. Yasmeen Roth MD Attending Provider Active Start: September 27, 2024 End: September 27, 2024 Dr. Yasmeen Roth MD Referring Provider Active Start: September 27, 2024 End: September 27, 2024 Team Status: Inactive Member Role/Relationship Status Dates Dr. Yasmeen Roth MD Primary Care Provider Active Start: January 05, 2025 End: January 05, 2025 Dr. Yasmeen Roth MD Attending Provider Active Start: January 05, 2025 End: January 05, 2025 Team Status: Active Member Role/Relationship Status Dates Dr. Yasmeen Roth MD Primary Care Provider Active Start: January 05, 2025 Dr. Yasmeen Roth MD Attending Provider Active Start: January 05, 2025 Dr. Yasmeen Roth MD Referring Provider Active Start: January 05, 2025 Goals (unrecognized section and content) Goals may be documented in a n alternate sectionGoals may be documented in an alternate sectionGoals may be documented in an alternate section FOR RECORDS PERTAINING TO PATIENTS WHO ARE OR HAVE BEEN ENROLLED IN A CHEMICAL DEPENDENCY/SUBSTANCEABUSE PROGRAM, SOME INFORMATION MAY BE OMITTED. This clinical summary was aggregated from multiple sources. Caution should be exercised in using it in the provision of clinical care. This summary normalizes information from multiple sources, and as a consequence, information in this document may materially change the coding, format and clinical context of patient data. In addition, data may be omitted in some cases. CLINICAL DECISIONS SHOULD BE BASED ON THE PRIMARY CLINICAL RECORDS. [employer] [employer] [facility]. provides no warranty or guarantee of the accuracy or completeness of information in this document.
== END | disposition home or self-care (01) ==
PROVIDERS: PCP Internal Medicine; Referring Provider Internal Medicine; Visit Provider Internal Medicine
DX: M79.89 Other specified soft tissue disorders (principal); I70.92 Chronic total occlusion of artery of the extremities
CPT/HCPCS: 93971

== ENCOUNTER → 2025-02-07 | Outpatient (CLI) | payer MEDICARE, OTHER, SELFPAY ==
--- OUTSIDE RECORDS SUMMARY | 2025-01-02 19:13 | XMS RPT_ITS ---
Author Name Auto Generated Organization OHIP Care Team Providers Care Warehouse Helper Name Role Phone LOUIS PEÑA DO Admitting Unavailable CHRIS ROTH Referring Unavailable CHRIS ROTH Consulting Unavailable LOUIS PEÑA DO Attending Unavailable LOUIS PEÑA DO Primary Care Unavailable PROVIDER, UNKNOWN Consulting Unavailable PROBLEMS No Problem Records Found PROCEDURES No Procedure Records Found RESULTS CT LUMBAR W/O CONTRAST Observed: 025 9:46 PM Status: F Source: [address] [address] Patient: ALEXI LUEVANO. Phone#: : 1945 Age: 79 Gender: M Pt. Type: ER Account: [id number] Location: [facility] Ordering: LOUIS PEÑA Exam Date: 01/02/2025/21:31 Family Phys: CHRIS ROTH Charge Code: [id number] Physician: [place] Order #: [id number] Dose#: [id number] PROCEDURE: CT LUMBAR SPINE WITHOUT CONTRAST COMPARISON: None. INDICATIONS: Back pain. TECHNIQUE: After obtaining the patient's consent, multi-planar CT images were created without intravenous contrast material. All CT scans at this facility use dose modulation, iterative reconstruction, and/or weight based dosing when appropriate to reduce radiation dose to as low as reasonably achievable. IV CONTRAST: No IV contrast used,ml TOTAL DOSE: CTDIvol(mGy) FINDINGS: PARASPINAL AREA: Normal with no visible mass. BONES: No fracture, pars defect, or osseous lesion. LUMBAR DISC LEVELS: L1-L2: No significant disc/facet abnormality, spinal stenosis, or foraminal stenosis. L2-L3: Annular disc bulging is present. There is mild narrowing of the spinal canal. Bony hypertrophy is present at the articular facettes. L3-L4: Annular disc bulging is present. There is moderate narrowing of the spinal canal. Bony hypertrophy is present at the articular facettes. L4-L5: Disc space narrowing is present. There is annular disc bulging and thickening of the ligamentum flavum. There is moderate to severe narrowing of the spinal canal. L5-S1: No significant disc/facet abnormality, spinal stenosis, or foraminal stenosis. CONCLUSION: 1. There is no evidence of acute fracture or subluxation. 2. Degenerative changes are present. There is spinal canal narrowing related to annular disc bulging and bony hypertrophy. Continued Report - Page 2 of 2 Patient: ALEXI LUEVANO Phone#: : 1945 Age: 79 Gender: M Pt. Type: ER Account: [id number] Location: 052 Ordering: LOUIS PEÑA Exam Date: 01/02/2025/21:31 Family Phys: CHRIS ROTH Charge Code: [id number] Physician: [place] Order #: [id number] Dose#: [id number] Dictated by: Padmaja Mauricio MD on 01/03/2025 at 1:21 Approved by: Padmaja Mauricio MD on 01/03/2025 at 1:27 SHOULDER COMPLETE RT Observed: 9:39 PM Status: F Source: [place] [address] Patient: ALEXI LUEVANO Phone#: : 1945 Age: 79 Gender: M Pt. Type: ER Account: [id number] Location: 052 Ordering: LOUIS PEÑA Exam Date: 01/02/2025/21:26 Family Phys: CHRIS ROTH Charge Code: [id number] Physician: [place] Order #: [id number] Dose#: PROCEDURE: X-RAY SHOULDER COMPLETE RT MIN 2 VIEWS COMPARISON: None. INDICATIONS: Shoulder pain. FINDINGS: BONES: Mild degenerative changes are present at the acromioclavicular joint. There is no evidence of acute bone abnormality. SOFT TISSUES: Negative. No visible soft tissue swelling. EFFUSION: None visible. OTHER: Negative. CONCLUSION: 1. There is no evidence of acute fracture. Dictated by: Padmaja Mauricio MD on 01/03/2025 at 2:19 Approved by: Padmaja Mauricio MD on 01/03/2025 at 2:21 ED ORDER SHEET (CPOE ONLY) Observed: 7:13 PM Status: F Source: [facility] Order Sheet - ALEXI LUEVANO, : 1945, , Order Sheet [address] [address] [id number] 01/02/2025 Patient: ALEXI LUEVANO Sex: Male : 1945 Age: 79y MEASUREMENTS: Wt: 99.8 kg, Ht/Duy: 73.0 in, BMI: 29.03 ALLERGIES: No known drug allergies MEDICATION/IV/DRIP/FLUID ORDERS Order Description Priority Entered Acknowledged Completed TraMADol (Ultram) PO50 mg 01:15 01/03/2025 01:16 01:18 (NOW x1, HIGH ALERT Louis Peña D.O. 01/03/2025 01/03/2025 MEDICATION) Iliana Sofia RJacinto LAB ORDERS Order Description Priority Entered Acknowledged Collected Completed DIAGNOSTIC STUDY ORDERS Order Description Priority Entered Acknowledged Completed Shoulder R Complete Stat Stat 21:07 01/02/2025 22:06 22:44 France Monet R.N. 01/02/2025 01/02/2025 Verbal Order, Auth by: Iliana Head D.O. Deusenberry, Read back and RJacinto verified Order Comments: 21:07 01/02/2025: (In waiting room) France Monet R.N. Reason for Study: Fall,Pain CT L-Spine wo Cont Stat Stat 21:07 01/02/2025 22:06 22:44 1 of 2 Order Sheet - ALEXI LUEVANO, : 1945, , France Monet R.N. 01/02/2025 01/02/2025 Verbal Order, Auth by: Iliana Head D.O. Deusenberry, Read back and R.N. verified Reason for Study: Pain STAFF ORDERS Order Description Priority Entered Acknowledged Collected Completed Arm Sling (right arm) 00:52 01/03/2025 00:53 01/03/2025 01:16 01/03/2025 Elissa Choi R.N. Seth Lapp, R.N. [Electronically signed by Louis Peña D.O. (01/03/2025 05:50 EDT)] 2 of 2 ED VITALS FLOW SHEET Observed: 7:13 PM Status: F Source: [facility] Vitals - ALEXI LUEVANO, : 1945, , Vital Sign Flow Sheet [address] [address] [id number] 01/02/2025 Patient: ALEXI LUEVANO Sex: Male : 1945 Age: 79y Measurements Wt: 99.8 kg, Ht/Duy: 73.0 in, BMI: 29.03 Measured Time BP MAP HR RR O2Sat ETCO2 Temp Pain GCS RTS 01:04 01/03/2025 128/70 89 80 18 98% 98.2 F 4 20:29 01/02/2025 143/75 98 82 16 97% 98.2 F 5 1 of 1 ED SUPER BILL Observed: 01/02/2025 7:13 PM Status: F Source: [facility] Superbill - ALEXI LUEVANO, DO B: 1945, , [address] [address] [id number] 01/02/2025 Patient: ALEXI LUEVANO Sex: Male : 1945 Age: 79y Item Professional Category Description Facility Code Code Quantity Fee Total Nurse/E/M EMERGENCY 989761 1 $0.00 $0.00 DEPARTMENT VISIT HIGH/URGENT SEVERITY (82877-63) Grand Total $0.00 Providers Louis Peña D.O. Chief Complaint Injury to right shoulder and Complaining of tailbone pain and right shoulder pain after he slipped and fell at the car wash today. Principal Diagnosis Sprain of the right rotator cuff. Lumbar strain. 1 of 2 Superbil - ALEXI LUEVANO, : 1945, , ICD-10 Codes S39.012A: Strain of muscle, fascia and tendon of lower back, initial encounter S43.421A: Sprain of right rotator cuff capsule, initial encounter 2 of 2 ED MED ADMINISTRATION DETAIL Observed: 0 01/02/2025 7:13 PM Status: F Source: [facility] Director Of Creative Services - ALEXI LUEVANO DO B: 1945, , Medication Administration Record [address] [address] [id number] 01/02/2025 Patient: ALEXI LUEVANO Sex: Male : 1945 Age: 79y MEASUREMENTS: Wt: 99.8 kg, Ht/Duy: 73.0 in, BMI: 29.03 ALLERGIES: No known drug allergies Medication Ordered Medication Administration Date/Time TraMADol (Ultram) 01:17 01/03 TraMADol (Ultram) PO 50 mg given. Allergies verified Given PO 50 mg (NOW x1, and confirmed 5 rights. Information reviewed with patient including 01:17 01/03/2025 HIGH ALERT reason for taking this medication. Verbalizes understanding. - Jorge Gallegos R.N. MEDICATION) 01:18 Jorge Gallegos R.N. Scanned 1 of 1 ED PHYSICIAN CLINICAL REPORT Observed: 0 01/02/2025 7:13 PM Status: F Source: [facility] Narrative - ALEXI LUEVANO DO B: 1945, , Physician Clinical [facility] [address] [place] [address] [id number] 01/02/2025 19:13:00 Patient: ALEXI LUEVANO Sex: Male : 1945 Age: 79y Disposition: Discharge to Home Disposition Decision Time: 00:59 01/03/2025 Departure Time: 01:18 01/03/2025 Measurements Wt: 99.8 kg, Ht/Duy: 73.0 in, BMI: 29.03 Initial Vital Sign Measured Time BP MAP HR RR O2Sat ETCO2 Temp Pain GCS RTS 20:29 01/02/2025 143/75 98 82 16 97% 98.2 F 5 Time Seen: 22:13 01/02/2025. Arrived- By private vehicle. Historian- patient. HISTORY OF PRESENT ILLNESS Chief Complaint: Injury to right shoulder and Complaining of tailbone pain and right shoulder pain after he slipped and fell at the car wash today. The injury happened today. Fell. Occurred (Car wash). Patient also notes injury to the lower back. REVIEW OF SYSTEMS SKIN: No suspected foreign body or skin laceration. NEUROLOGICAL: No tingling, numbness or weakness. MUSCULOSKELETAL: No swelling. PAST HISTORY 1 of 6 Narrative - ALEXI LUEVANO, : 1945, , See nurses notes. kidney stones stomach ulcer TIA - Transient Ischemic Attack Surgeries: Tonsillectomy Medications: Fiber Supplement(wheat dextrin) 3 gram/3.8 gram oral powder hydrochlorothiazide 50 mg tablet losartan 50 mg tablet omeprazole 20 mg capsule,delayed release Vitamin D3 50 mcg (2,000 unit) capsule Allergies: no known drug allergies SOCIAL HISTORY Never smoker. No alcohol use or drug use. ADDITIONAL NOTES The nursing notes have been reviewed. PHYSICAL EXAM Head: Head atraumatic. Eyes: Pupils equal, round and reactive to light. ENT: Nose normal. Pharynx normal. Neck: Normal inspection. Neck supple. C-spine non-tender. CVS: Normal heart rate and rhythm. Heart sounds normal. Pulses normal. Respiratory: No respiratory distress. Breath sounds normal. Chest nontender. Abdomen: No visible injury. Soft and nontender. Bowel sounds normal. No mass. Back: Moderate vertebral point tenderness over the lower lumbar spine (tender over mid sacrum. No deformity). Skin: Skin intact. Skin warm and dry. 2 of 6 Narrative - ALEXI LUEVANO, : 1945, , Extremities: Right shoulder: moderate tenderness and mild swelling located in the anterior aspect of the shoulder. Limited ROM (diminished flexion and extension). Neurovascular intact distally. No erythema, laceration, abrasion, ecchymosis or puncture wound. No foreign body or deformity. No avulsion. No joint effusion. Extremities otherwise negative. Neuro, Vascular and Tendons: Sensation intact. Motor intact. Vascular status intact. Neuro: Oriented X 3. No motor deficit. No sensory deficit. LABS, X-RAYS, AND EKG X-Rays: Right shoulder negative. CT Abdomen, Pelvis: CT scan of the lumbar spine without contrast shows normal alignment. No evidence of fracture. There was multilevel degenerative changes most apparent at L3-L4 and L4-L5. Disc bulging at these levels with degenerative changes resulting in moderate lumbar spinal stenosis. Degenerative disc disease appears worse at L4-L5. No paraspinous hematoma. No evidence of an acute abnormality in the imaged retroperitoneum. Abdomen - pelvic CT performed without contrast. The study was interpreted by the radiologist. Interpretation time: 22:38 01/03/2025. Diagnostic Study Tests: CT LUMBAR W/O CONTRAST Final EXAM Date: 01/02/2025 21:46:00 EDT MsgRcvd: 01/03/2025 01:30 EDT [place] [address] Patient: ALEXI LUEVANO Phone#: : 1945 Age: 79 Gender: M Pt. Type: ER Account: [id number] Location: [facility] Ordering: LOUIS PEÑA Exam Date: 01/02/2025/21:31 Family Phys: CHRIS ROTH Charge Code: [id number] Physician: [place] Order #: [id number] Dose#: [id number] PROCEDURE: CT LUMBAR SPINE WITHOUT CONTRAST COMPARISON: None. INDICATIONS: Back pain. TECHNIQUE: After obtaining the patient's consent, multi-planar CT images were created without intravenous contrast material. 3 of 6 Narrative - ALEXI LUEVANO, : 1945, , All CT scans at this facility use dose modulation, iterative reconstruction, and/or weight based dosing when appropriate to reduce radiation dose to as low as reasonably achievable. IV CONTRAST: No IV contrast used,ml TOTAL DOSE: CTDIvol(mGy) FINDINGS: PARASPINAL AREA: Normal with no visible mass. BONES: No fracture, pars defect, or osseous lesion. LUMBAR DISC LEVELS: L1-L2: No significant disc/facet abnormality, spinal stenosis, or foraminal stenosis. L2-L3: Annular disc bulging is present. There is mild narrowing of the spinal canal. Bony hypertrophy is present at the articular facettes. L3-L4: Annular disc bulging is present. There is moderate narrowing of the spinal canal. Bony hypertrophy is present at the articular facettes. L4-L5: Disc space narrowing is present. There is annular disc bulging and thickening of the ligamentum flavum. There is moderate to severe narrowing of the spinal canal. L5-S1: No significant disc/facet abnormality, spinal stenosis, or foraminal stenosis. CONCLUSION: 1. There is no evidence of acute fracture or subluxation. 2. Degenerative changes are present. There is spinal canal narrowing related to annular disc bulging and bony hypertrophy. Continued Report - Page 2 of 2 Patient: ALEXI LUEVANO Phone#: : 1945 Age: 79 Gender: M Pt. Type: ER Account: [id number] Location: 2 Ordering: LOUIS PEÑA Exam Date: 01/02/2025/21:31 Family Phys: CHRIS Liliana ROTH Charge Code: [id number] Physician: [place] Order #: [id number] Dose#: 43.7 Dictated by: Padmaja Mauricio MD on 01/03/2025 at 1:21 Approved by: Padmaja Mauricio MD on 01/03/2025 at 1:27 SHOULDER COMPLETE RT Final EXAM Date: 01/02/2025 21:39:00 EDT MsgRcvd: 01/03/2025 02:25 EDT [place] [id number] 4 of 6 Narrative - ALEXI LUEVANO, : 1945, , Patient: ALEXI LUEVANO Phone#: : 1945 Age: 79 Gender: M Pt. Type: ER Account: [id number] Location: [facility] Ordering: LOUIS PEÑA Exam Date: 01/02/2025/21:26 Family Phys: CHRIS ROTH Charge Code: [id number] Physician: [place] Order #: [id number] Dose#: PROCEDURE: X-RAY SHOULDER COMPLETE RT MIN 2 VIEWS COMPARISON: None. INDICATIONS: Shoulder pain. FINDINGS: BONES: Mild degenerative changes are present at the acromioclavicular joint. There is no evidence of acute bone abnormality. SOFT TISSUES: Negative. No visible soft tissue swelling. EFFUSION: None visible. OTHER: Negative. CONCLUSION: 1. There is no evidence of acute fracture. Dictated by: Padmaja Mauricio MD on 01/03/2025 at 2:19 Approved by: Padmaja Mauricio MD on 01/03/2025 at 2:21 PROGRESS AND PROCEDURES MEDICAL DECISION MAKING: Ordered tests include a CT of the LS-spine and x-rays of the extremities. The patient has been stable. The pain got better. The exam has not changed. Disposition: Condition: good. Disposition Decision Time: 00:59 01/03/2025. Patient discharged to Home. Discharged in good condition. Discharge decision based on the following: patient's condition is stable; patient is ambulatory; patient's pain is controlled; patient's exam is stable; minimally abnormal test results; stable condition on multiple repeat evaluations; social support is adequate; transportation is available; follow-up is available; clinical impression is consistent with outpatient treatment. CLINICAL IMPRESSION Sprain of the right rotator cuff. Lumbar strain. 5 of 6 Narrative - ALEXI LUEVANO, : 1945, , DISCHARGE INSTRUCTIONS Limit use of your hand. (CT scan of your lower back did show some arthritis with some disc bulging at the lower levels resulting in moderate lumbar spinal stenosis. X-rays of the right shoulder showed no evidence of any fracture dislocation by my reading. Our in-house radiologist will review the x-rays and CAT scans tomorrow. Rest with no heavy lifting or other exertional activities. Consider following up with an orthopedic surgeon regarding your low back. See below. Possibly for your shoulder as well especially if it does not get better since you could have a rotator cuff injury that would not show up on the x-rays. You would need an MRI for that.). Warnings: Fall prevention warnings. GENERAL WARNINGS: Return or contact your physician immediately if your condition worsens or changes unexpectedly, if not improving as expected, or if other problems arise. Prescription Medications: tramadol 50 mg tablet: Take 1 tablet by mouth every six hours as needed for pain for 3 days, dispense 12 tablet. Refills 0. Pharmacy: [facility] [id number] [place] [address]. cyclobenzaprine 10 mg tablet: Take 1 tablet by mouth every eight hours as needed for pain for 7 days, dispense 21 tablet. Refills 0. Pharmacy: [facility] [id number] [place] [address]. Understanding of the discharge instructions verbalized by patient. Follow-up with: Dr. Roth, internal medicine, Phone: [phone], [address] [place], [place] [address]. Follow up in four days. Call for an appointment. Reason for referral: evaluation and treatment. Summary of care provided to patient and family. Bunny Harrington DO [facility], Orthopedic, Phone: [phone], [address] [address]. Follow up in eight days. Call for an appointment. Reason for referral: evaluation and treatment. Summary of care provided to patient. (Electronically signed by Louis Peña D.O. 01/03/25 05:50:57 EDT) Generated by [facility] 6 of 6 ED VISIT SUMMARY Observed: 01/02/2025 7:13 PM Status: F Source: [facility] Visit Overview - WILMA LUEVANO, : 1945, , Visit Overview [address] [address] [id number] 01/02/2025 Patient: ALEXI LUEVANO Sex: Male : 1945 Age: 79y 01/03/2025 05:51 AM EDT ED Arrival:19:13 01/02/2025 EDT Status: Recent Travel:no Language:eng Adv Directive:No Isolation Status: Ethnicity:N Fall Risk:risk Infectious Disease Exposure:no Measurements:6'1 / 185.4 Self-Harm Status:risk Sepsis Screen:negative cm 220.0 lb / 99.8 kg Chief Complaint:due to wet floor, slipped, (18:45 01/02/2025), (car wash ), and (Dr. Roth) ALLERGIES No Known Drug Allergies HOME MEDICATIONS Fiber Supplement(wheat dextrin) 3 gram/3.8 gram oral powder hydrochlorothiazide 50 mg tablet losartan 50 mg tablet omeprazole 20 mg capsule,delayed release Vitamin D3 50 mcg (2,000 unit) capsule 1 of 3 Visit Overview - ALEXI LUEVANO, : 1945, , PAST MEDICAL HISTORY / PROBLEMS See nurses notes stomach ulcer TIA - Transient Ischemic Attack PAST SURGICAL HISTORY Tonsillectomy SOCIAL HISTORY Smoking status: No Alcohol use: No Drug use: No ED COURSE MEDICATIONS GIVEN IN EMERGENCY DEPARTMENT 01:17 01/03/25 TraMADol (Ultram) PO 50 mg IV SITE INFORMATION INTAKE OUTPUT REASSESMENT (most recent) 22:51 01/02/25. Ambulatory to room. GENERAL / NEURO / PSYCH: Alert. Oriented X 4. Appears in no acute distress. ( slipped and fell in a car wash, denies striking his head, states he landed on his r buttock adn right shoulder. limited mobility in right shoulder.). HEENT: Pupils equal, round and reactive to light. SKIN: Skin is warm and dry. VITAL SIGNS First Vitals Last Vitals Temp 20:29 01/02/25 98.2 F Temp 01:04 01/03/25 98.2 F BP 20:29 01/02/25 143/75 BP 01:04 01/03/25 128/70 HR 20:01/02/25 82 HR 01:04 01/03/25 80 RR 20:01/02/25 16 RR 01:04 01/03/25 18 2 of 3 Visit Overview - ALEXI LUEVANO, : 1945, , First Vitals Last Vitals O2 Sat 20:29 01/02/25 97% O2 Sat 01:04 01/03/25 98% Pain 20:29 01/02/25 5 Pain 01:04 01/03/25 4 ETCO2 20:29 01/02/25 ETCO2 01:04 01/03/25 GCS 20:29 01/02/25 GCS 01:04 01/03/25 RTS 20:29 01/02/25 RTS 01:04 01/03/25 PROCEDURES NURSING INTERVENTIONS LABS / STUDIES LABS / STUDIES ORDERED CT L-Spine wo Cont Shoulder R Complete CLINICAL IMPRESSION LUMBAR STRAIN SPRAIN OF THE RIGHT ROTATOR CUFF 3 of 3 ED NURSES CLINICAL NOTE Observed: 2024 7:13 PM Status: F Source: [facility] Nurse Narrative - BASSEMJOANNA, : 1945, , Nurse Clinical Narrative [facility] [address] [place] [address] [phone] 01/02/2025 19:13:00 Patient: ALEXI LUEVANO Sex: Male : 1945 Age: 79y Disposition: Discharge to Home Disposition Decision Time: 00:59 01/03/2025 Departure Time: 01:18 01/03/2025 TRIAGE Arrived by private vehicle. Historian: (patient). Primary physician (Dr. Roth). Triage time: 20:20 01/02/2025. Acuity: LEVEL 4. Chief Complaint: FALL. Slipped due to wet floor. Location of injuries: coccyx and right shoulder. Occurred (car wash). Occurred 18:45 01/02/2025. No loss of consciousness. No alteration in mental status, dizziness, neck pain, extremity pain or back pain. No trouble walking, limited ROM present or difficulty breathing. SEPSIS SCREEN: NEGATIVE. SIRS criteria negative. No possible sources of infection. -- 20:01/02/25 JERSEYT France Monet R.N. 20:01/02/25. BP: 143/75 MAP: 98. HR: 82. RR: 16. O2 saturation: 97% Temperature: 98.2 F. Pain level now 5/10. -- 20:01/02/25 JERSEYT France Monet R.N. Measurements: 20:01/02/25 Wt: 99.8 kg, Ht/Duy: 73.0 in, BMI: 29.03 -- 20:01/02/25 JERSEYT France Monet R.N. Medications: omeprazole 20 mg capsule,delayed release -- 20:30 01/02/25 JERSEYT France Monet R.N. hydrochlorothiazide 50 mg tablet -- 20:30 01/02/25 JERSEYT France Monet R.N. 1 of 3 Nurse Narrative - ALEXI LUEVANO, : 1945, , losartan 50 mg tablet -- 20:30 01/02/25 JERSEYT France Monet R.N. Vitamin D3 50 mcg (2,000 unit) capsule -- 20:31 01/02/25 JERSEYT France Monet R.N. Fiber Supplement(wheat dextrin) 3 gram/3.8 gram oral powder -- 20:32 01/02/25 JERSEYT France Monet R.N. Allergies: no known drug allergies -- 20:23 01/02/25 JERSEYT France Monet R.N. Problems: stomach ulcer -- 20:24 01/02/25 JERSEYT France Monet R.N. TIA - Transient Ischemic Attack -- 20:24 01/02/25 JERSEYT France Monet R.N. kidney stones -- 20:25 /24/25 EDT France Monet R.N. Surgeries: Tonsillectomy -- 20:01/02/25 JERSEYT France Monet R.N. History 20:01/02/25. SOCIAL HX: Never smoker. No alcohol use or drug use. The patient has not traveled outside the [place] Infectious disease exposure: No infectious disease exposure. ABUSE ASSESSMENT: The patient answered yes to the question(s) Do you feel safe in your home? and no to the question(s) Are you afraid to go home?. SELF HARM ASSESSMENT: Self harm assessment was performed. The patient answered no to the question(s) Have you recently felt down, depressed, or hopeless? and Do you have thoughts of harming or killing yourself?. SKIN INTEGRITY ASSESSMENT: Skin integrity risk assessment completed. No skin integrity risk identified. -- 20:01/02/25 JERSEYT France Monet R.N. 22:01/02/25. FALL RISK ASSESSMENT: Fall risk assessment completed. Risk factors identified include patient age greater than 65 years and history of fall. Fall interventions initiated. Patient placed on stretcher. Side rails up. Bed in low position. Patient identified as a fall risk by ID band. Instructed not to get up without assistance. -- 22:01/02/25 JERSEYT France Monet R.N. 2 of 3 Nurse Narrative - BASSEM ALEXI, : 1945, , Interventions 20:01/02/25. Advanced care plan. Patient does not have advanced directive. -- 20:01/02/25 EDT France Monet R.N. PHYSICAL ASSESSMENT 22:51 01/02/25. Ambulatory to room. GENERAL / NEURO / PSYCH: Alert. Oriented X 4. Appears in no acute distress. ( slipped and fell in a car wash, denies striking his head, states he landed on his r buttock adn right shoulder. limited mobility in right shoulder.). HEENT: Pupils equal, round and reactive to light. SKIN: Skin is warm and dry. -- 23:31 01/02/25 EDT Jorge Rosy, R.N. NURSING PROGRESS NOTES 21:01/02/25. Patient walked to radiology and CT with bio medical technician. (ambulated from waiting room to CT). -- 21:01/02/25 EDT France Monet R.N. 22:01/02/25. Two patient identifiers checked. Call light placed in reach. Side rails up x 1. Bed placed in lowest position. Brakes of bed on. -- 22:45 01/02/25 EDT Jorge Gallegos R.N. 01:05 01/03/25. Sling applied. -- 01:20 01/03/25 EDT Jorge Gallegos R.N. 01:17 01/03/25. TraMADol (Ultram) PO 50 mg given. Allergies verified and confirmed 5 rights. Information reviewed with patient including reason for taking this medication. Verbalizes understanding. -- 01:01/03/25 EDT Jorge Gallegos R.N. DISPOSITION / DISCHARGE 01:04 01/03/25. BP: 128/70 MAP: 89. HR: 80. RR: 18. O2 saturation: 98% Temperature: 98.2 F. Pain level now 4/10. -- 01:19 01/03/25 EDT Jorge Gallegos R.N. Departure time: 01:01/03/2025. Condition at departure: improved and stable. No learning barriers present. Discharge instructions provided and reviewed with the patient. Reviewed medication(s). Treatments reviewed. Reviewed referrals. Patient verbalized understanding. Written instructions provided in Eritrean. The patient was discharged home. The patient left ambulatory and via private vehicle. Economic Research Assistant driving. -- 01:01/03/25 EDT Jorge Gallegos R.N. (Electronically signed by Jorge Gallegos R.N. 01/03/25 01:21:00 EDT) Generated by [facility] 3 of 3 ALLERGIES DATE TYPE / CODE NAME / CODE REACTION SEVERITY SOURCE Drug Allergy/[id number](SN OMED CT) ASA (aspirin)/[id number]( RXNORM) U Jose Isidro [facility] ENCOUNTERS ADMIT/DISCHARGE ACCOUNT NUMBER ADMITTING ENCOUNTER CLASS LOCATION SOURCE 01/02/2025/ 5 [id number] L[place] PEÑA DO Emergency BuildinR oom: [facility] PAYERS ENCOUNTER GUARANTOR PAYER SUBSCRIBER SOURCE 01/02/2025 ALEXI CHASE: [id number] [place] [address]Tyw: () Primary Insurance:MEDICARE OUTPATIENTPolicy Number: [id number] Date:Plan Name:CASPER CHASE: [id number] [place] [address] [facility] 01/02/2025 Secondary Insurance:[facility] OUTPATIENTPolicy Number: [id number] Date: ALEXI CHASE: [id number] [place] [address] [facility]
--- NOTE | 2025-02-07 15:45 | MRI_ITS ---
PROCEDURE: UPPER EXT JOINT ONLY(ROUTINE) 02/07/2025 REASON FOR EXAM: Right shoulder pain. TECHNIQUE: Procedure Code: MRIUEJ Modality: MR Procedure: UPPER EXT JOINT ONLY(ROUTINE) Multiplanar and multisequence images were obtained without IV contrast administration. COMPARISON: COMPARISON: None. 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 3.7 cm proximal retraction of the ruptured insertional fibers of the supraspinatus tendon. Mild chronic muscular atrophy of the supraspinatus muscle. Prominent degenerative fibrocystic changes at the humeral insertion of the rotator cuff tendons with surrounding degenerative reactive bone marrow edema. Medial subluxation of the biceps tendon in relation to the bicipital groove with associated bicipital tendinosis. Moderate degenerative joint disease of the glenohumeral joint. Complex tears of the labrum which is diffusely truncated and macerated. Mild glenohumeral joint effusion. Mild subcoracoid effusion. Thickening of the glenohumeral joint capsule suggestive of adhesive capsulitis. Type III acromion. Degenerative joint disease of the acromioclavicular joint. Findings are demonstrated by joint space narrowing, osteophyte formation and degenerative periarticular bone marrow changes. Narrowing of the supraspinatus outlet and impingement on its myotendinous junction. Tendinosis with mild partial thickness tear of the insertional fibers of the infraspinatus tendon. Tendinosis with moderate partial thickness tear of the insertional fibers of the subscapularis tendon. Unremarkable teres minor muscle and tendon. Degenerative fibrocystic changes at the humeral insertion of the rotator cuff tendons. Fluid signal and edema in the subdeltoid/subacromial bursa suggestive of bursitis and/or impingement. The remaining visualized osseous elements are intact with no evidence of fracture or dislocation. The remaining marrow signal is within normal limits. The visualized hyaline cartilage is diffusely degenerated. Moderate degenerative joint disease of the glenohumeral joint. There is mild glenohumeral joint effusion. 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 3.7 cm proximal retraction of the ruptured insertional fibers of the supraspina tus tendon. Mild chronic muscular atrophy of the supraspinatus muscle. Prominent degenerative fibrocystic changes at the humeral insertion of the rota tor cuff tendons with surrounding degenerative reactive bone marrow edema. Medial subluxation of the biceps tendon in relation to the bicipital groove wit h associated bicipital tendinosis. Moderate degenerative joint disease of the glenohumeral joint. Complex tears of the labrum which is diffusely truncated and macerated. Mild glenohumeral joint effusion. Tendinosis with mild partial thickness tear of the insertional fibers of the in fraspinatus tendon. Tendinosis with moderate partial thickness tear of the insertional fibers of th e subscapularis tendon. Reading Location: [facility]
== END | disposition home or self-care (01) ==
LOC: MRI 15:40
PROVIDERS: PCP Internal Medicine; Referring Provider Internal Medicine; Visit Provider Internal Medicine
DX: M25.511 Pain in right shoulder (principal); M75.21 Bicipital tendinitis, right shoulder
CPT/HCPCS: 73221

== ENCOUNTER → 2025-04-13 | Outpatient (CLI) | payer MEDICARE, OTHER, SELFPAY ==
[2025-04-13 15:48] LABS: PSA,Total- Diagnostic 2.14 ng/mL (0.00-4.00)
== END | disposition home or self-care (01) ==
LOC: LAB 13:37
PROVIDERS: PCP Internal Medicine; Referring Provider Internal Medicine; Visit Provider Internal Medicine
DX: N40.0 Benign prostatic hyperplasia without lower urinary tract symptoms (principal)
CPT/HCPCS: 36415; 84153